=== PATIENT | female | born 1940 | race American Indian/Alaskan Native ===

== ENCOUNTER 2017-07-01 10:12 | Observation (INO) | payer OTHER ==
[2017-07-01 10:13] VITALS: BMI 28.8
--- NOTE | 2017-07-01 11:00 | ED PDOC ---
Arrival/HPI - General Chief Complaint: Weakness/Neurological Deficit Time Seen by Provider: 07/01/17 10:47 Historian: Patient - History of Present Illness Narrative History of Present Illness (Text): 07/01/17 10:49 Liliam Suresh 77 year old female accompanied by homemaker, whose past medical history includes prior CVA, Arthritis, diabetes, and hypertension, who presents to the emergency department complaining of near syncope and generalized weakness today. Patient denies any pain, fever, shortness of breath , palpitations, fall, injury, or any other complaints at this time. Time/Duration: 4-6 hours Symptom Onset: Gradual Symptom Course: Unchanged Activities at Onset: Light Context: Home Past Medical History - Provider Review Nursing Documentation Reviewed: Yes - Infectious Disease Hx of Infectious Diseases: None - Tetanus Immunization Tetanus Immunization: Unknown - Cardiac Hx Hypertension: Yes - Pulmonary Hx Respiratory Disorders: No - Neurological HX Cerebrovascular Accident: Yes - HEENT Hx HEENT Disorder: No - Renal Hx Renal Failure: Yes - Endocrine/Metabolic Hx Diabetes Mellitus Type 2: Yes - Hematological/Oncological Hx Blood Transfusions: No Hx Blood Transfusion Reaction: No - Integumentary Hx Dermatological Disorder: No - Musculoskeletal/Rheumatological Hx Musculoskeletal Disorders: Yes Hx Arthritis: Yes - Gastrointestinal Hx Gastrointestinal Disorders: No - Genitourinary/Gynecological Hx Genitourinary Disorders: No - Psychiatric Hx Emotional Abuse: No Hx Physical Abuse: No Hx Substance Use: No - Past Surgical History Past Surgical History: No Previous - Surgical History Hx Carotid Endarterectomy: Yes - Anesthesia Hx Anesthesia: Yes Hx Anesthesia Reactions: No Hx Malignant Hyperthermia: No - Suicidal Assessment Feels Threatened In Home Enviroment: No Family/Social History - Physician Review Nursing Documentation Reviewed: Yes Family/Social History: No Known Family HX Smoking Status: Never Smoked Hx Alcohol Use: No Hx Substance Use: No Hx Substance Use Treatment: No Allergies/Home Meds Allergies/Adverse Reactions: Allergies Penicillins Allergy (Verified 07/01/17 10:28) ITCHING Home Medications: Home Meds Medication Instructions Recorded Confirmed oxyCODONE/Acetaminophen [Percocet 1 tab PO Q6 04/29/15 07/01/17 5/325 mg Tab] Atorvastatin Calcium [Atorvastatin 40 mg PO DAILY 07/01/17 07/01/17 Calcium] B Complex W-C No.20/Folic Acid 1 mg PO DAILY 07/01/17 07/01/17 [Renal Caps Softgel] Colesevelam HCl [Welchol] 625 mg PO DAILY 07/01/17 07/01/17 Ezetimibe [Zetia] 10 mg PO DAILY 07/01/17 07/01/17 Febuxostat [Uloric] 40 mg PO DAILY 07/01/17 07/01/17 Furosemide [Lasix] 20 mg PO DAILY 07/01/17 07/01/17 Insulin Lispro [humALOG] 0 units SC AC 07/01/17 07/01/17 Losartan [Cozaar] 50 mg PO DAILY 07/01/17 07/01/17 Nebivolol [Bystolic] 2.5 mg PO DAILY 07/01/17 07/01/17 Review of Systems - Physician Review All systems were reviewed & negative as marked: Yes - Review of Systems Constitutional: Other (Generalized weakness). absent: Fevers, Night Sweats Eyes: absent: Vision Changes ENT: absent: Hearing Changes Respiratory: absent: SOB, Cough Cardiovascular: absent: Chest Pain Gastrointestinal: absent: Abdominal Pain Genitourinary Female: absent: Dysuria, Frequency Musculoskeletal: absent: Arthralgias Skin: absent: Rash Neurological: Other (Near Syncope) Endocrine: absent: Diaphoresis Hemo/Lymphatic: absent: Adenopathy Psychiatric: absent: Anxiety, Depression Physical Exam - Physical Exam Narrative Physical Exam (Text): Constitutional: No acute distress. Head: Normocephalic. Atraumatic. Eyes: PERRL. ENT: Moist mucous membranes. Neck: Supple. Cardiovascular: Regular rate. Chest: No tenderness. Respiratory: Clear to auscultation bilaterally. GI: Soft. Nontender. Nondistended. Back: No CVA tenderness. Musculoskeletal: No tenderness or swelling of extremities. Skin: No rash. Neurologic: Alert, facial droop. Moves all extremities. Vital Signs Reviewed: Yes Vital Signs Pulse Resp BP Pulse Ox 07/01/17 12:13 88 18 123/70 98 Medical Decision Making ED Course and Treatment: 07/01/17 11:03 Impression: 77 year old female complaining of near syncope and generalized weakness today. Plan: -- Chest X-ray -- Urine Culture and Urinalysis -- Labs -- Reassess and disposition Prior Visits: Notes and results from previous visits were reviewed. Patient was last seen in the emergency department on 03/14/16 for dizziness and generalized weakness x 2 days. Patient was discharged home. Progress Notes: EKG: Ordered, reviewed, and independently interpreted the EKG. Rate : 59 BPM Rhythm : Sinus Rhythm Interpretation : No ST-segment elevations or depressions, no T-wave inversions, normal intervals. Comparison : No previous EKG for comparison. 07/01/17 12:36 Chest X-ray: Creator : Guerrero Mota MD FINDINGS: LUNGS:No active pulmonary disease. PLEURA:No significant pleural effusion identified, no pneumothorax apparent. CARDIOVASCULAR:Normal. OSSEOUS STRUCTURES:No significant abnormalities. VISUALIZED UPPER ABDOMEN:Normal. OTHER FINDINGS:None. IMPRESSION: No active disease. 07/01/17 15:13 FINDINGS: HEMORRHAGE: No intracranial hemorrhage. BRAIN: No mass effect or edema. No atrophy or chronic microvascular ischemic changes. VENTRICLES: Unremarkable. No hydrocephalus. CALVARIUM: Unremarkable. PARANASAL SINUSES: Unremarkable as visualized. No significant inflammatory changes. MASTOID AIR CELLS: Unremarkable as visualized. No inflammatory changes. OTHER FINDINGS: None. IMPRESSION: No acute findings Dr. Powell accepts patient to his service. vice president payment notified. - Lab Interpretations Lab Results: 07/01/17 11:31 07/01/17 11:31 Lab Results 07/01/17 12:04: Urine Color Yellow, Urine Appearance Clear, Urine pH 6.0, Ur Specific [place] 1.020, Urine Protein 100 H, Urine Glucose (UA) Negative, Urine Ketones Negative, Urine Blood Trace-lysed H, Urine Nitrate Negative, Urine Bilirubin Negative, Urine Urobilinogen 0.2, Ur Leukocyte Esterase Negative, Urine RBC 2 - 5, Urine WBC 0 - 2, Ur Epithelial Cells 6 - 8, Urine Bacteria Many , Hyaline Casts 0 - 2, Fine Granular Casts 0 - 2 07/01/17 11:36: POC Glucose (mg/dL) 157 H 07/01/17 11:31: Sodium 143, Potassium 4.8, Chloride 111 H, Carbon Dioxide 19 L, Anion Gap 17, BUN 41 H, Creatinine 1.9 H, Est GFR ( Amer) 31, Est GFR ( Non-Af Amer) 26, Random Glucose 162 H, Calcium 9.2, Total Bilirubin 0.4, AST 14 , ALT 14, Alkaline Phosphatase 97, Total Creatine Kinase 93, Troponin I < 0.01, Total Protein 6.9, Albumin 3.7, Globulin 3.2, Albumin/Globulin Ratio 1.2 07/01/17 11:31: WBC 7.1 D, RBC 3.68, Hgb 11.0 L, Hct 32.7 L, MCV 88.9, MCH 29.9 , MCHC 33.6, RDW 13.5, Plt Count 224, MPV 11.6 H, Gran % 70.3 H, Lymph % (Auto) 23.0, [place] % (Auto) 6.3 H, Eos % (Auto) 0.3 L, Baso % (Auto) 0.1, Gran # 4.98, Lymph # (Auto) 1.6, [place] # (Auto) 0.5, Eos # (Auto) 0.0, Baso # (Auto) 0.01 I have reviewed the lab results: Yes - RAD Interpretation Radiology Orders: 07/01/17 10:48 CHEST PORTABLE [RAD] Stat 07/01/17 12:10 HEAD W/O CONTRAST [CT] Stat - Medication Orders Current Medication Orders: Discontinued Medications Sodium Chloride (Sodium Chloride 0.9%) 1,000 mls @ 999 mls/hr IV .Q1H1M STA Stop: 07/01/17 13:01 - Scribe Statement The provider has reviewed the documentation as recorded by the Stacey Cook Provider Scribe Attestation: All medical record entries made by the Scribe were at my direction and personally dictated by me. I have reviewed the chart and agree that the record accurately reflects my personal performance of the history, physical exam, medical decision making, and the department course for this patient. I have also personally directed, reviewed, and agree with the discharge instructions and disposition. Disposition/Present on Arrival - Present on Arrival Any Indicators Present on Arrival: No History of DVT/PE: No History of Uncontrolled Diabetes: No Urinary Catheter: No History of Decub. Ulcer: No History Surgical Site Infection Following: None - Disposition Have Diagnosis and Disposition been Completed?: Yes Diagnosis: Near syncope, Dehydration Disposition: HOSPITALIZED Disposition Time: 13:45 Patient Plan: Observation, Telemetry Condition: FAIR
[2017-07-01 11:35] LABS: BASO # 0.01 K/mm3 (0.0-2.0); BASO % 0.1 % (0.0-3.0); EOS % 0.3 % (1.5-5.0); GRAN # 4.98 (1.4-6.5); GRAN % 70.3 % (50.0-68.0); LYMPH # 1.6 (1.2-3.4); MEAN CELL VOLUME 88.9 fl (80.0-105.0); MEAN CORPUSCULAR HEMOGLOBIN 29.9 pg (25.0-35.0); MEAN CORPUSCULAR HGB CONC 33.6 g/dl (31.0-37.0); MEAN PLATELET VOLUME 11.6 fl (7.0-11.0); MONO # 0.5 (0.1-0.6); MONO % 6.3 % (1.0-6.0); RBC 3.68 10^6/uL (3.5-6.1); RED CELL DISTRIBUTION WIDTH 13.5 % (11.5-14.5); WHITE BLOOD COUNT 7.1 10^3/ul (4.5-11.0)
[2017-07-01 11:44] LABS: ALB/GLOB RATIO 1.2 (1.1-1.8); ALBUMIN 3.7 g/dL (3.0-4.8); CALCIUM 9.2 mg/dL (8.4-10.5); GFR AFRICAN-AMERICAN 31; GFR NON-AFRICAN AMERICAN 26
[2017-07-01 11:55] LABS: TROPONIN I < 0.01 ng/mL
[2017-07-01 11:56] LABS: ALT/SGPT 14 U/L (7-56); AST/SGOT 14 U/L (14-36); BLOOD UREA NITROGEN 41 mg/dL (7-21)
[2017-07-01] MEDS ORDERED: Sodium Chloride 0.9% 1,000 ML IV STA (12:01)
[2017-07-01 12:16] LABS: URINE APPEARANCE CLEAR (CLEAR); URINE BILIRUBIN NEGATIVE (NEGATIVE); URINE BLOOD TRACE-LYSED (NEGATIVE); URINE COLOR YELLOW (YELLOW); URINE GLUCOSE (UA) NEGATIVE (NEGATIVE); URINE LEUKOCYTE ESTERASE NEGATIVE Leu/uL (NEGATIVE); URINE PROTEIN 100 mg/dL (<30 mg/dL); URINE UROBILINOGEN 0.2 E.U./dL (<1 E.U./dL)
[2017-07-01 12:19] LABS: URINE BACTERIA MANY (NEG); URINE HYALINE CAST 0 - 2 /hpf; URINE WBC 0 - 2 /hpf (0-6)
[2017-07-01 12:20] LABS: URINE FINE GRANULAR CAST 0 - 2 /hpf (0-2)
--- NOTE | 2017-07-01 12:23 | RAD ---
HISTORY: near syncope COMPARISON: 03/14/2016 FINDINGS: LUNGS: No active pulmonary disease. PLEURA: No significant pleural effusion identified, no pneumothorax apparent. CARDIOVASCULAR: Normal. OSSEOUS STRUCTURES: No significant abnormalities. VISUALIZED UPPER ABDOMEN: Normal. OTHER FINDINGS: None. IMPRESSION: No active disease.
--- NOTE | 2017-07-01 13:47 | CT ---
PROCEDURE: CT HEAD WITHOUT CONTRAST. HISTORY: near syncope COMPARISON: None available. TECHNIQUE: Axial computed tomography images were obtained through the head/brain without intravenous contrast. Radiation dose: Total exam DLP = 944 mGy-cm. This CT exam was performed using one or more of the following dose reduction techniques: Automated exposure control, adjustment of the mA and/or kV according to patient size, and/or use of iterative reconstruction technique. FINDINGS: HEMORRHAGE: No intracranial hemorrhage. BRAIN: No mass effect or edema. No atrophy or chronic microvascular ischemic changes. VENTRICLES: Unremarkable. No hydrocephalus. CALVARIUM: Unremarkable. PARANASAL SINUSES: Unremarkable as visualized. No significant inflammatory changes. MASTOID AIR CELLS: Unremarkable as visualized. No inflammatory changes. OTHER FINDINGS: None. IMPRESSION: No acute findings
[2017-07-01 15:42] LABS: PARTIAL THROMBOPLASTIN TIME 24.4 Seconds (25.1-36.5); PROTHROMBIN TIME 11.4 SECONDS (9.4-12.5)
--- NOTE | 2017-07-01 16:09 | CP.PCM.HP ---
<Jorge Ambrose - Last Filed: 07/01/17 16:02> History of Present Illness - History of Present Illness History of Present Illness: Medicine H&P: Dr. Powell Chief Complaint: Near syncope HPI: 77 year old female with past medical history significant for previous stroke, HTN, IDDM, lacunar infarct and microvascular ischemic disease of the brain presents with episode of pre-syncope and generalized weakness. Patient states she has been feeling tired and fatigued throughout the day today. She denies any extremity numbness and tingling, and states that this does not feel like her prior stroke, but that she has been feeling dizzy and weak in the right side of her body. Review of Systems: 12 point ROS obtained and negative except as per HPI Surgical Hx: Cardiac catheterization, colonoscopy with tubular adenoma, polypectomy Medical Hx: As above in addition to esophageal candidaisis, gastritis, osteomyelitis, degenerative joint disease, CAD, Diiverticulosis Allergies: PCN Social History: Denies smoking, alcohol, illicits Home Meds: Reviewed, as per MAR Family Hx: HTN, DM Present on Admission - Present on Admission Any Indicators Present on Admission: No Past Patient History - Infectious Disease Hx of Infectious Diseases: None - Tetanus Immunizations Tetanus Immunization: Unknown - Past Social History Smoking Status: Never Smoked - CARDIAC Hx Hypertension: Yes - PULMONARY Hx Respiratory Disorders: No - NEUROLOGICAL HX Cerebrovascular Accident: Yes - HEENT Hx HEENT Problems: No - RENAL Hx Renal Failure: Yes - ENDOCRINE/METABOLIC Hx Diabetes Mellitus Type 2: Yes - HEMATOLOGICAL/ONCOLOGICAL Hx Blood Transfusions: No Hx Blood Transfusion Reaction: No - INTEGUMENTARY Hx Dermatological Problems: No - MUSCULOSKELETAL/RHEUMATOLOGICAL Hx Musculoskeletal Disorders: Yes Hx Arthritis: Yes - GASTROINTESTINAL Hx Gastrointestinal Disorders: No - GENITOURINARY/GYNECOLOGICAL Hx Genitourinary Disorders: No - PSYCHIATRIC Hx Emotional Abuse: No Hx Physical Abuse: No Hx Substance Use: No - SURGICAL HISTORY Hx Carotid Endarterectomy: Yes - ANESTHESIA Hx Anesthesia: Yes Hx Anesthesia Reactions: No Hx Malignant Hyperthermia: No Meds Home Medications: Home Medication List Medication Instructions Recorded Confirmed Type Clopidogrel [Plavix] 75 mg PO DAILY tab 07/06/17 Rx Docusate [Colace] 100 mg PO TID cap 07/06/17 Rx Ergocalciferol [Drisdol 50,000 1 cap PO Q7D cap 07/06/17 Rx Intl Units Cap] Ferrous Gluconate [Fergon] 324 mg PO TID tab 07/06/17 Rx Folic Acid 1 mg PO DAILY tab 07/06/17 Rx Pantoprazole [Protonix EC Tab] 40 mg PO 0600 ect 07/06/17 Rx Polyethylene Glycol 3350 [Miralax] 17 gm PO TID packet 07/06/17 Rx Vitamin B Complex/Vit C/Folic 1 tab PO 0800 tab 07/06/17 Rx [Nephro-Francisco] hydrALAZINE [Apresoline] 25 mg PO QID tab 07/06/17 Rx Allergies/Adverse Reactions: Allergies Allergy/AdvReac Type Severity Reaction Status Date / Time Penicillins Allergy ITCHING Verified 07/01/17 10:28 Physical Exam - Constitutional Appears: Non-toxic, Older Than Stated Age, Chronically Ill - Head Exam Head Exam: ATRAUMATIC, NORMAL INSPECTION, NORMOCEPHALIC - Eye Exam Eye Exam: EOMI, Normal appearance, PERRL Pupil Exam: NORMAL ACCOMODATION, PERRL - ENT Exam ENT Exam: Mucous Membranes Moist, Normal Exam - Neck Exam Neck exam: Positive for: Normal Inspection - Respiratory Exam Respiratory Exam: Clear to Auscultation Bilateral, NORMAL BREATHING PATTERN - Cardiovascular Exam Cardiovascular Exam: REGULAR RHYTHM - GI/Abdominal Exam GI & Abdominal Exam: Normal Bowel Sounds, Soft. absent: Tenderness - Extremities Exam Additional comments: Right sided weakness - Back Exam Back exam: NORMAL INSPECTION - Neurological Exam Neurological exam: Alert, CN II-XII Intact, Normal Gait, Oriented x3, Reflexes Normal - Psychiatric Exam Psychiatric exam: Normal Affect, Normal Mood - Skin Skin Exam: Dry, Intact, Normal Color, Warm Results - Vital Signs Recent Vital Signs: Last Vital Signs Temp Pulse 58 L 07/01/17 15:52 Resp 16 07/01/17 14:10 BP 182/77 H 07/01/17 15:52 Pulse Ox 98 07/01/17 14:00 - Labs Result Diagrams: 07/01/17 11:31 07/01/17 11:31 Labs: Laboratory Results - last 24 hr 07/01/17 15:29 PT 11.4 INR 1.00 APTT 24.4 L Assessment & Plan - Assessment and Plan (Free Text) Assessment: 77 year old female with pertinent medical history of prior CVA and CAD s/p Catheterization presents with generalized weakness and near-syncope. EKG revealed NSR without arrhythmia without ST changes. CT head was negative for any acute process as well as chest XR. Patient's infectious work up so far reveals no UTI. However, patient does have creatinine 1.9 suggesting HAM which could be contributing to her weakness, and with elevated BUN/Cr ratio but producing urine, suggests a prerenal azotemia. Patient was given mild fluid resuscitation in the ED ( 1L ). Patient does not have other electrolyte disturbances that could contribute to her near syncope. Plan: Pre-Syncope, most likely 2/2 Dehydration VS HAM VS CVA - MRI, MRA brain; Carotid dopplers; Blood cultures, Urine cultures, sputum cultures - NPO, swallow eval, PT/OT - Neurology Consult: Dr. Thomas - Cardiology Consult: Dr. Castro - ASA stat, Lipitor stat Acute on Chronic Kidney Injury - Mild fluid hydration given patient's past medical history - Avoid Nephrotoxic agents except for ASA History CAD - ASA, Zetia, Bystolic - Currently NPO; when diet started, make sure patient is carb consistent and heart healthy History CVA - As per first assessment History HTN - Cozaar, Furosemide, Bystolic History IDDM - RISS Medium with Accuchecks - Currently NPO; when diet started, make sure patient is carb consistent and heart healthy History Gastritis - Monitor History DJD - Perc q6 MIRANDA History Anemia - Folic Acid, monitor History Gout - Febuxostat Uloric Prophylaxis - Lovenox, Protonix <Sherry,Gurpreet U - Last Filed: 07/09/17 11:45> Results - Vital Signs Recent Vital Signs: Last Vital Signs Temp 98.6 F 07/06/17 06:00 Pulse 78 07/06/17 09:33 Resp 20 07/06/17 06:00 BP 140/60 07/06/17 09:33 Pulse Ox 98 07/06/17 06:00 - Labs Result Diagrams: 07/05/17 06:30 07/06/17 06:15 Labs: Laboratory Results - last 24 hr 07/03/17 07/05/17 07/05/17 11:30 06:30 09:15 Sodium Potassium Chloride Carbon Dioxide Anion Gap BUN Creatinine Est GFR ( Amer) Est GFR (Non-Af Amer) POC Glucose (mg/dL) Random Glucose Calcium Phosphorus Magnesium Transferrin Erythropoietin 7.2 Ferritin 42.9 Total Bilirubin Direct Bilirubin AST ALT Alkaline Phosphatase Total Protein Albumin Globulin Albumin/Globulin Ratio PTH Intact Whole Molec 115 H 07/05/17 07/05/17 07/05/17 09:15 12:50 16:15 Sodium Potassium Chloride Carbon Dioxide Anion Gap BUN Creatinine Est GFR ( Amer) Est GFR (Non-Af Amer) POC Glucose (mg/dL) 271 H 226 H Random Glucose Calcium Phosphorus Magnesium Transferrin 153.49 L Erythropoietin Ferritin Total Bilirubin Direct Bilirubin AST ALT Alkaline Phosphatase Total Protein Albumin Globulin Albumin/Globulin Ratio PTH Intact Whole Molec 07/05/17 07/06/17 07/06/17 21:46 06:15 07:21 Sodium 139 Potassium 4.4 Chloride 106 Carbon Dioxide 23 Anion Gap 14 BUN 35 H Creatinine 1.8 H Est GFR ( Amer) 33 Est GFR (Non-Af Amer) 27 POC Glucose (mg/dL) 165 H 135 H Random Glucose 135 H Calcium 8.5 Phosphorus 3.3 Magnesium 1.9 Transferrin Erythropoietin Ferritin Total Bilirubin 0.2 Direct Bilirubin 0.0 AST 42 H D ALT 28 Alkaline Phosphatase 97 Total Protein 6.4 Albumin 3.2 Globulin 3.2 Albumin/Globulin Ratio 1.0 L PTH Intact Whole Molec 07/06/17 11:05 Sodium Potassium Chloride Carbon Dioxide Anion Gap BUN Creatinine Est GFR ( Amer) Est GFR (Non-Af Amer) POC Glucose (mg/dL) 200 H Random Glucose Calcium Phosphorus Magnesium Transferrin Erythropoietin Ferritin Total Bilirubin Direct Bilirubin AST ALT Alkaline Phosphatase Total Protein Albumin Globulin Albumin/Globulin Ratio PTH Intact Whole Molec Assessment & Plan - Assessment and Plan (Free Text) Assessment: IMPRESSION AND PLAN: 1. Near-syncope. 2. Transient uncontrolled hypertension versus hypertensive urgency (resolved). 3. Fatigue and weakness. 4. Dizziness. 5. Gait dysfunction. 6. Near syncope, etiology undetermined. 7. Sinus bradycardia. 8. Age-indeterminate anterior infarct. 9. Sinus bradycardia. 10. Mild normocytic anemia with granulocytosis. 11. Chronic kidney disease stage IV. 12. Insulin-requiring diabetes mellitus with hyperglycemia. 13. Proteinuria, microscopic hematuria, bacteriuria. 14. Sinus bradycardia with age indeterminate anterior infarct. 15. History of left carotid stenosis and left cerebral hemispheric stroke with mild residual right-sided weakness. 16. Insulin-requiring diabetes mellitus. 17. Bilateral 20-39% proximal internal carotid artery stenosis. 18. History of pulmonary hypertension with a right ventricular systolic pressure of 44 mmHg. 19. Grade 1 abnormal relaxation pattern. 20. Moderately thickened aortic valve. 21. Deconditioning. 22. Chronic pain syndrome. 23. Hyperuricemia. DICTATED AND ELECTRONICALLY SIGNED NOT READ. GURPREET POWELL MD Attending/Attestation - Attestation I have personally seen and examined this patient.: Yes I have fully participated in the care of the patient.: Yes I have reviewed all pertinent clinical information: Yes
[2017-07-01] MEDS: Insulin Reg-MEDIUM-Coverage SC SCH ×2 (17:52→22:26)
[2017-07-01] MEDS: Enoxaparin 40 mg Syringe SC SCH (18:05)
[2017-07-01] MEDS: Oxycodone/Acetaminophen 5/325 mg Tab PO SCH (18:06)
--- NOTE | 2017-07-01 19:02 | CON ---
DATE: 07/01/2017 NEUROLOGY CONSULT CHIEF COMPLAINT: Near syncope. HISTORY OF PRESENT ILLNESS: This is a 77-year-old woman with past medical history of coronary artery disease, status post cardiac catheterization, history of TIA, hypertension, insulin-dependent diabetes mellitus, lacunar infarct, microvascular chronic ischemic changes on her last MRI brain in 2017, who presented with generalized weakness and lightheadedness and felt like she was going to pass out. She felt fatigue throughout the day, found to have elevated BUN and creatinine, acute on chronic kidney injury, and felt dizzy and lightheadedness. No spinning sensation of the room. CAT scan of the head showed no acute intracranial abnormality. Currently, carotid ultrasound has been done, but result is pending. No dysmetria or focal weakness noted. PAST MEDICAL HISTORY: As above. PAST SURGICAL HISTORY: Cardiac catheterization, colonoscopy for tubular adenoma, polypectomy. REVIEW OF SYSTEMS: A 14-point review of systems negative except as per the HPI. ALLERGIES: PENICILLIN. SOCIAL HISTORY: No illicit drug use, smoking, or EtOH abuse. FAMILY HISTORY: . PHYSICAL EXAMINATION: VITAL SIGNS: Temperature 98, pulse rate is 60, blood pressure 142/72, respiratory rate of 18, oxygen saturation 98% by room air. GENERAL: The patient is sitting up in bed, in no acute distress. HEENT: Head is atraumatic and normocephalic. PERRLA. Extraocular muscles intact. NECK: Supple. No JVD. No adenopathy noted. LUNGS: Clear to auscultation. No adventitious sounds. HEART: S1 and S2, normal rate and rhythm. No murmur, rubs, or gallops. ABDOMEN: Soft, nontender, and nondistended. Bowel sounds present. EXTREMITIES: No clubbing. No cyanosis. Peripheral pulses 2+ felt bilaterally. NEUROLOGIC: The patient is alert and oriented to person, place, month, and year. Speech is fluent without any errors. Poor attention span. Slow thought process. Cranial nerves II through XII intact. Motor: Slightly reduced right-sided finger tapping when compared to the left, otherwise no major pronator drift seen. Moves all extremities spontaneously. Sensory: Decreased light touch and pinprick up to the calves bilaterally. Decreased vibration of the toes. DTRs are 2+ throughout and 1 at both knees and ankles. Coordination: [id number] intact. No dysmetria noted. LABORATORY DATA: Sodium is 143, potassium 4.8, chloride 111, carbon dioxide 19. BUN of 41, creatinine 1.9. Random glucose of 162. ASSESSMENT AND PLAN: This is a 77-year-old woman with history of coronary artery disease, status post cardiac catheterization, history of hypertension, insulin-dependent diabetes mellitus, history of lacunar infarct, chronic ischemic changes per recent MRI in 2017, history of transient ischemic attack who presented with pre-syncope and generalized weakness. CAT scan of the head showed no acute intracranial abnormalities. She was found to have elevated BUN and creatinine suggestive of possible acute on chronic kidney injury and . She underwent a carotid Doppler as well as an MRI and MRA of brain have been ordered to rule out any acute infarction. She did have slight hypertensive urgency which can correspond to generalized weakness as well. Therefore, keep blood pressures between 130s to 140 systolic and diastolic 70 to 80s. Continue with Lipitor 40 mg and recommended aspirin 81 for stroke prevention and continue with current present medical management. PT/OT evaluation. Thank you for this consult. Baltazar Thomas MD
--- NOTE | 2017-07-01 19:26 | US ---
PROCEDURE: Bilateral carotid artery duplex ultrasound HISTORY: Carotid stenosis syncope PHYSICIAN(S): Jesus Adame MD. TECHNIQUE: Duplex sonography and color-flow Doppler were used to evaluate the carotid bifurcations and limited segments of the vertebral arteries bilaterally. FINDINGS: There is mild smooth heterogeneous plaque noted at the carotid bifurcations bilaterally. The proximal right ICA is not well seen. The peak systolic velocity in the visualized portion of the proximal right internal carotid artery is 74 cm/sec. This corresponds to a 20 to 39% proximal right ICA stenosis. Normal systolic velocities are noted in the proximal right external carotid artery. There is antegrade flow in the right vertebral artery. The peak systolic velocity in the proximal left internal carotid artery is 104 cm/sec. This corresponds to a 20 to 39% proximal left ICA stenosis. Normal systolic velocities are noted in the proximal left external carotid artery. There is antegrade flow in the small left vertebral artery. IMPRESSION: 1. Bilateral 20-39% proximal ICA stenoses. The proximal right ICA is not well seen 2. Antegrade flow in both vertebral arteries.
[2017-07-01 19:32] LABS: TROPONIN I < 0.01 ng/mL
[2017-07-02 00:52] LABS: TROPONIN I < 0.01 ng/mL
[2017-07-02] MEDS: Oxycodone/Acetaminophen 5/325 mg Tab PO SCH ×5 (03:19→23:08)
[2017-07-02] MEDS: Pantoprazole 40 mg EC Tab PO SCH (05:46)
[2017-07-02] MEDS: Insulin Reg-MEDIUM-Coverage SC SCH ×4 (07:40→21:24)
[2017-07-02] MEDS: Enoxaparin 40 mg Syringe SC SCH (09:44)
[2017-07-02] MEDS: Aspirin 325 mg EC Tablets PO SCH (09:45)
--- NOTE | 2017-07-02 10:10 | PN ---
DATE: 07/02/2017 SUBJECTIVE: The patient is seen in room 277, bed 1. The patient is lying in the bed. The patient is comfortable. Thirteen systems review was done. The patient is complaining of weakness and fatigue. The patient feels that she is lack of energy. REVIEW OF SYSTEMS: Thirteen systems review was done, pertinent positive and negative dictated above. PHYSICAL EXAMINATION: VITAL SIGNS: T-max 98.3; heart rate 54, 52, 51, 58, 60, 74. Telemetry monitoring shows sinus rhythm, sinus bradycardia. Blood pressure is 153/68, 145/89, 142/72, 182/77, 123/70; respirations 20; O2 sat 100%. HEENT: Head examination normocephalic, atraumatic. HEENT examination shows positive facial asymmetry. Positive left carotid endarterectomy. Questionable soft carotid bruit. CHEST: Kyphosis. LUNGS: Shows no rales, crackles or wheezing. CARDIOVASCULAR: S1, S2. Regular rhythm. Positive systolic murmur, left sternal border, right second intercostal space, left second intercostal space. ABDOMEN: Soft. Positive bowel sound. GENITALIA: Female. RECTAL: Deferred. EXTREMITY: Shows no pitting edema, no calf tenderness, no Homans' sign. NEUROLOGICAL: The patient is alert, awake, oriented x3. The patient has some dysarthria noted, which is chronic. Positive weakness of the right upper and lower extremity noted, which is 4+ to 5-/5 on the right side. Gait examination is not tested. Cranial nerves II-XII intact and limited. MUSCULOSKELETAL: Shows a body mass index of 30. VASCULAR: Palpable pulses. PSYCHIATRIC: Not applicable. DIAGNOSTICS: From 07/02/2017 are still pending, though ordered by the medical aide, results are still pending. 07/01/2017 noted. Troponin three sets are negative. CPK is negative. EKG, chest x-ray, CAT scan of the head, carotid ultrasound all reviewed and explained to the patient. The patient is seen by Neurology. Their recommendations were noted. IMPRESSION AND PLAN: 1. Near-syncope. 2. Transient uncontrolled hypertension versus hypertensive urgency (resolved). 3. Fatigue and weakness. 4. Dizziness. 5. Gait dysfunction. 6. Near syncope, etiology undetermined. 7. Sinus bradycardia. 8. Age-indeterminate anterior infarct. 9. Sinus bradycardia. 10. Mild normocytic anemia with granulocytosis. 11. Chronic kidney disease stage IV. 12. Insulin-requiring diabetes mellitus with hyperglycemia. 13. Proteinuria, microscopic hematuria, bacteriuria. 14. Sinus bradycardia with age indeterminate anterior infarct. 15. History of left carotid stenosis and left cerebral hemispheric stroke with mild residual right-sided weakness. 16. Insulin-requiring diabetes mellitus. 17. Bilateral 20-39% proximal internal carotid artery stenosis. 18. History of pulmonary hypertension with a right ventricular systolic pressure of 44 mmHg. 19. Grade 1 abnormal relaxation pattern. 20. Moderately thickened aortic valve. 21. Deconditioning. 22. Chronic pain syndrome. 23. Hyperuricemia. Plan at this time, the patient is awaiting today's lab work, which has been ordered, B12, folate, uric acid, CMP, LFTs, lipid panel, magnesium, phosphorus, thyroid panel have been ordered. Labs are still pending. Blood and urine cultures were done by the ER, results are pending. CURRENT CONSULTATION: 1. Cardiology. 2. Neurology. 3. The patient's referral to TCU ordered. RPR ordered. CURRENT MEDICATIONS: The patient is started on hydralazine 10 mg p.o. every 6 hours, aspirin 325 daily. The patient's uric acid will be checked. Insulin medium-dose sliding scale coverage before meals and at bedtime, Lipitor 40 mg daily, Lovenox 40 mg subcu daily, Percocet 5/325 one tab every 6 p.r.n., Protonix 40 daily, Zetia 10 mg daily. MRI, MRA of the brain is pending. Repeat EKG from today is pending. Echo with Doppler is pending. EEG is pending. The patient is on heart-healthy diet. Neuro checks. Out of bed, physical therapy, ambulation therapy, BELLE stockings, SCDs, occupational therapy ordered. At present, the patient's pending diagnostic information is pending. The patient's further management will be dependent upon the patient's clinical condition, hemodynamic status and as per the patient's response to therapeutic intervention, as per the patient's diagnostic test results and as per recommendation by all the physicians involved in the care of the patient. Dictated and electronically signed, not read. Randall Powell MD [facility] # [id number]
[2017-07-02 11:44] LABS: BASO # 0.01 K/mm3 (0.0-2.0); BASO % 0.2 % (0.0-3.0); EOS % 0.5 % (1.5-5.0); GRAN # 4.18 (1.4-6.5); GRAN % 65.6 % (50.0-68.0); HEMOGLOBIN 11.6 g/dL (12.0-16.0); LYMPH # 1.8 (1.2-3.4); LYMPH % 28.7 % (22.0-35.0); MEAN CELL VOLUME 88.9 fl (80.0-105.0); MEAN CORPUSCULAR HEMOGLOBIN 29.8 pg (25.0-35.0); MEAN CORPUSCULAR HGB CONC 33.5 g/dl (31.0-37.0); MONO # 0.3 (0.1-0.6); RBC 3.89 10^6/uL (3.5-6.1); RED CELL DISTRIBUTION WIDTH 13.6 % (11.5-14.5); WHITE BLOOD COUNT 6.4 10^3/ul (4.5-11.0)
[2017-07-02 11:56] LABS: ALB/GLOB RATIO 1.1 (1.1-1.8); ALBUMIN 3.8 g/dL (3.0-4.8); ALT/SGPT 12 U/L (7-56); AST/SGOT 13 U/L (14-36); BLOOD UREA NITROGEN 37 mg/dL (7-21); CALCIUM 9.1 mg/dL (8.4-10.5); GFR AFRICAN-AMERICAN 29; GFR NON-AFRICAN AMERICAN 24; HDL CHOLESTEROL 52 mg/dL (29-60); URIC ACID 8.9 mg/dL (2.5-6.2)
[2017-07-02 12:07] LABS: LDL CHOLESTEROL 55 mg/dL (0-129)
[2017-07-02 12:08] LABS: TROPONIN I < 0.01 ng/mL
[2017-07-02 12:12] LABS: FREE T4 0.94 ng/dL (0.78-2.19); T4 6.5 ug/dL (5.5-11.0)
--- NOTE | 2017-07-02 12:29 | CARD ---
APPROVED REPORT EKG Measurement Heart [id number] [place] [id number] <Conclusion> Marked sinus bradycardia Non Specific ST_T Changes.
--- NOTE | 2017-07-02 13:04 | CARD ---
APPROVED REPORT EKG Measurement Heart [id number] <Conclusion> Sinus bradycardia Non Specific ST_T Changes.
--- NOTE | 2017-07-02 22:16 | CON ---
DATE: 07/02/2017 LOCATION: The patient in room 277, bed 1. REASON FOR CONSULTATION: Dizziness, near syncope, hypertension, diabetes. HISTORY OF PRESENT ILLNESS: A 77-year-old female, who has history of hypertension, [id number] diabetes mellitus, lacunar infarct, microvascular chronic ischemic changes on her last MRI of brain in 2016, who has history of carotid surgery. Admitted with 1-day duration of episodes of dizziness on standing up and walking, not on sitting and not on lying down. She feels like she is going to fall down. She has to hold on the things. The patient denies any chest pain, shortness of breath, palpitation associated with these episodes. PAST MEDICAL HISTORY: Positive for diabetes, hypertension, CVA with facial paresis, carotid surgery. The patient has cardiac catheterization in 2012. It was nonobstructive coronary artery disease. She had polypectomy in the past. PERSONAL HISTORY: Denies smoking. Denies drinking. No history of any drug abuse. ALLERGIES: THE PATIENT STATES THAT SHE IS ALLERGIC TO PENICILLIN. FAMILY HISTORY: Positive for hypertension. REVIEW OF SYSTEMS: All the systems reviewed. Positives mentioned in the history, others were negative. LIST OF HOME MEDICATIONS: The patient was taking losartan 50 mg daily, Lasix 20 mg daily, atorvastatin 40 mg daily, Zetia 10 mg daily, Bystolic 2.5 mg p.o. daily. PHYSICAL EXAMINATION: VITAL SIGNS: Blood pressure 143/56; respirations 19; pulse is 64, but at times has also bradycardia, rate around 48 per minute; temperature 98.1. HEENT: Head is normocephalic. Eyes: Pupils normal. Conjunctivae normal. Nose and throat normal. Facial: The patient has weakness on left side of the face. LUNGS: Clear. CARDIOVASCULAR: S1 and S2. ABDOMEN: Soft. No tenderness. No organomegaly. Bowel sound normal. EXTREMITIES: No clubbing. No cyanosis. LABORATORY DATA: WBC 6.4, hemoglobin 11.6, hematocrit 34.6, platelet 247. Sodium 145, potassium 4.1, BUN 37, creatinine 2, glucose random 220. Troponin x2 negative. T4, TSH are normal. Cholesterol 148 with LDL of 55. EKG shows sinus bradycardia, nonspecific ST-T changes, sinus bradycardia rate about 48 per minute. Chest x-ray was clear. CT scan of the head showed no acute finding. DIAGNOSES: Dizziness on standing up and walking and near syncope, diabetes, hypertension, arthritis, renal dysfunction, history of old cerebrovascular accident, history of carotid surgery, history of transient ischemic attack in the past, cardiac catheterization in year 2012 with nonobstructive coronary artery disease. PLAN: The patient had an echo on 05/02/2015, which showed RVSP 44 mmHg, which is suggestive of mild pulmonary hypertension, grade 1 abnormal relaxation LV pattern. LV ejection fraction was normal 71%. The patient also has stress test on 05/02/2015, which was negative. Normal ejection fraction of 65%. The patient's Bystolic had been put on hold and we are going to check orthostatic blood pressure to rule out orthostatic hypotension. Also, we will put 24-hour monitor to monitor for arrhythmia, especially bradycardia. The patient is now on hydralazine 10 mg p.o. every 6 hours, aspirin 325 mg daily, Uloric 40 mg p.o. daily, Lipitor 40 daily, Lovenox 40 mg subcu daily, Protonix 40 daily, Zetia 10 mg daily. We will continue present therapy and we will monitor for arrhythmia and we will follow with you. This consult has been done on behalf of Dr. Castro whom I am in coverage. Daniela Rosario MD
[2017-07-03] MEDS: Pantoprazole 40 mg EC Tab PO SCH (05:11)
[2017-07-03] MEDS: Oxycodone/Acetaminophen 5/325 mg Tab PO SCH ×3 (05:11→17:24)
[2017-07-03 06:37] LABS: BASO # 0.01 K/mm3 (0.0-2.0); BASO % 0.2 % (0.0-3.0); EOS # 0.1 (0.0-0.7); EOS % 1.2 % (1.5-5.0); GRAN # 2.81 (1.4-6.5); GRAN % 49.8 % (50.0-68.0); HEMOGLOBIN 9.9 g/dL (12.0-16.0); LYMPH # 2.4 (1.2-3.4); LYMPH % 42.6 % (22.0-35.0); MEAN CELL VOLUME 88.6 fl (80.0-105.0); MEAN CORPUSCULAR HEMOGLOBIN 29.6 pg (25.0-35.0); MEAN CORPUSCULAR HGB CONC 33.4 g/dl (31.0-37.0); MEAN PLATELET VOLUME 10.8 fl (7.0-11.0); MONO # 0.4 (0.1-0.6); MONO % 6.2 % (1.0-6.0); RBC 3.34 10^6/uL (3.5-6.1); RED CELL DISTRIBUTION WIDTH 13.4 % (11.5-14.5); WHITE BLOOD COUNT 5.6 10^3/ul (4.5-11.0)
[2017-07-03 07:17] LABS: ALBUMIN 3.1 g/dL (3.0-4.8); BILIRUBIN,DIRECT 0.1 mg/dL (0.0-0.4); CALCIUM 8.5 mg/dL (8.4-10.5)
[2017-07-03] MEDS: Insulin Reg-MEDIUM-Coverage SC SCH ×4 (07:49→21:14)
--- NOTE | 2017-07-03 08:42 | CP.PCM.PN ---
Subjective - Date & Time of Evaluation Date of Evaluation: 07/03/17 Time of Evaluation: 08:00 - Subjective Subjective: (covering for Dr. Powell) Patient is seen this morning. She is lying in bed, awake. She says that she becomes dizzy when standing. Objective - Vital Signs/Intake and Output Vital Signs (last 24 hours): Temp Pulse Resp BP Pulse Ox 98.6 F 55 L 20 163/62 H 98 07/03/17 06:00 07/03/17 06:00 07/03/17 06:00 07/03/17 06:00 07/03/17 06:00 - Medications Medications: Current Medications Aspirin (Ecotrin) 325 mg PO DAILY [facility] Last Admin: 07/02/17 09:45 Dose: 325 mg Atorvastatin Calcium (Lipitor) 40 mg PO DAILY [facility] Last Admin: 07/02/17 09:45 Dose: 40 mg Ezetimibe (Zetia) 10 mg PO DAILY [facility] Last Admin: 07/02/17 09:45 Dose: 10 mg Enoxaparin Sodium (Lovenox) 40 mg SC DAILY [facility] PRN Reason: Protocol Last Admin: 07/02/17 09:44 Dose: 40 mg Hydralazine HCl (Apresoline) 10 mg PO Q6H [facility] Last Admin: 07/03/17 05:11 Dose: 10 mg Insulin Human Regular (Humulin R Med) 0 units SC ACHS [facility] PRN Reason: Protocol Last Admin: 07/03/17 07:49 Dose: Not Given Non-Formulary Medication (Febuxostat [Uloric]) 40 mg PO DAILY [facility] Oxycodone/Acetaminophen (Percocet 5/325 Mg Tab) 1 tab PO Q6 [facility] Stop: 07/04/17 18:01 Last Admin: 07/03/17 05:11 Dose: 1 tab Pantoprazole Sodium (Protonix Ec Tab) 40 mg PO 0600 [facility] Last Admin: 07/03/17 05:11 Dose: 40 mg - Labs Labs: 07/03/17 05:00 07/03/17 06:00 PT 11.4 SECONDS (9.4-12.5) 07/01/17 15:29 INR 1.00 (0.93-1.08) 07/01/17 15:29 APTT 24.4 Seconds (25.1-36.5) L 07/01/17 15:29 - Constitutional Appears: No Acute Distress - Head Exam Head Exam: ATRAUMATIC, NORMOCEPHALIC - Respiratory Exam Respiratory Exam: Decreased Breath Sounds, NORMAL BREATHING PATTERN - Cardiovascular Exam Cardiovascular Exam: +S1, +S2 - GI/Abdominal Exam GI & Abdominal Exam: Soft, Normal Bowel Sounds. absent: Tenderness - Neurological Exam Neurological Exam: Alert, Awake Assessment and Plan - Assessment and Plan (Free Text) Assessment: Near Syncope Dizziness DM HTN Arthritis Plan: Patient is seen this morning. She has ongoing evaluation by cardiology and neurology. MRI/MRA Brain and EEG are still pending. Holter monitor is also being done on the patient. Echocardiogram has been done but not read. Carotid artery doppler shows 20-39% stenosis bilaterally. Patient to continue PT and await further testing. Dr. Powell will see the patient tomorrow.
--- NOTE | 2017-07-03 09:13 | CP.PCM.PN ---
Subjective - Date & Time of Evaluation Date of Evaluation: 07/03/17 Time of Evaluation: 06:50 - Subjective Subjective: Lying in bed,awake, no distress,denies chest pain or shortness of breath Reason for consultation and follow up: Cardiac evaluation, near syncope, stroke , hypertension, non insulin diabetes mellitus Seen and examined by me and Dr. Rosario (covering Dr. Castro) Objective - Vital Signs/Intake and Output Vital Signs (last 24 hours): Temp Pulse Resp BP Pulse Ox 98.6 F 55 L 20 163/62 H 98 07/03/17 06:00 07/03/17 06:00 07/03/17 06:00 07/03/17 06:00 07/03/17 06:00 - Medications Medications: Current Medications Aspirin (Ecotrin) 325 mg PO DAILY [facility] Last Admin: 07/02/17 09:45 Dose: 325 mg Atorvastatin Calcium (Lipitor) 40 mg PO DAILY [facility] Last Admin: 07/02/17 09:45 Dose: 40 mg Ezetimibe (Zetia) 10 mg PO DAILY [facility] Last Admin: 07/02/17 09:45 Dose: 10 mg Enoxaparin Sodium (Lovenox) 40 mg SC DAILY [facility] PRN Reason: Protocol Last Admin: 07/02/17 09:44 Dose: 40 mg Hydralazine HCl (Apresoline) 10 mg PO Q6H [facility] Last Admin: 07/03/17 05:11 Dose: 10 mg Insulin Human Regular (Humulin R Med) 0 units SC ACHS [facility] PRN Reason: Protocol Last Admin: 07/03/17 07:49 Dose: Not Given Non-Formulary Medication (Febuxostat [Uloric]) 40 mg PO DAILY [facility] Oxycodone/Acetaminophen (Percocet 5/325 Mg Tab) 1 tab PO Q6 [facility] Stop: 07/04/17 18:01 Last Admin: 07/03/17 05:11 Dose: 1 tab Pantoprazole Sodium (Protonix Ec Tab) 40 mg PO 0600 [facility] Last Admin: 07/03/17 05:11 Dose: 40 mg - Labs Labs: PT 11.4 SECONDS (9.4-12.5) 07/01/17 15:29 INR 1.00 (0.93-1.08) 07/01/17 15:29 APTT 24.4 Seconds (25.1-36.5) L 07/01/17 15:29 - Constitutional Appears: No Acute Distress - Eye Exam Eye Exam: Normal appearance - ENT Exam ENT Exam: Mucous Membranes Moist - Respiratory Exam Respiratory Exam: Clear to Ausculation Bilateral, NORMAL BREATHING PATTERN - Cardiovascular Exam Cardiovascular Exam: +S1, +S2 Additional comments: telemetry sinus bradycardia 50's - GI/Abdominal Exam GI & Abdominal Exam: Soft, Normal Bowel Sounds - Exam Additional comments: incontinent, purewick external cath intact - Extremities Exam Extremities Exam: Normal Capillary Refill - Neurological Exam Neurological Exam: Alert, Awake, Oriented x3 - Psychiatric Exam Psychiatric exam: Normal Affect, Normal Mood - Skin Skin Exam: Intact, Normal Color, Warm Assessment and Plan - Assessment and Plan (Free Text) Assessment: 77 year old female who came in to the ER due to near syncope and generalized weakness. She has been feeling tired and weak throughout the day.claimed to be dizziy on standing up and walking. History significant for previous stroke, HTN , IDDM, lacunar infarct and microvascular ischemic disease of the brain.post carotid surgery. Plan: Orthosthatic hypotension Will order orthostatic BP taking Bystolic home med held off, started on Hydralazine Bradycardia, on Holter monitor for 24 hours With Neuro consult On ASA 325 mg daily,Lipitor 40 mg daily,Zetia 10 mg daily, Hydralazine 10 mg every 6 hours,Uloric 40 mg daily SBP elevated, will increase Hydralazine Continue current treatment Continue current medications Will follow up Plan and treatment discussed with Dr. Rosario
--- NOTE | 2017-07-03 09:26 | CARD ---
APPROVED REPORT EXAM: Two-dimensional and M-mode echocardiogram with Doppler and color Doppler. 2D DIMENSIONS IVSd1.0 (0.7-1.1cm)LVDd4.3 (3.9-5.9cm) PWd1.1 (0.7-1.1cm)LVDs2.8 (2.5-4.0cm) FS (%) 34.9 %LVEF (%)64.5 (>50%) M-Mode DIMENSIONS Left Atrium (MM)3.90 (2.5-4.0cm)Aortic Root2.90 (2.2-3.7cm) Aortic Cusp Exc.1.80 (1.5-2.0cm) Aortic Valve AoV Peak Cfgsiuzg721.0cm/Christine Peak GR.14mmHg Mitral Valve MV E Vvgpzahj17.9cm/sMV A Ptidrnpi884.0cm/sE/A ratio0.9 TDI Lateral E' Peak V8.09cm/sMedial E' Peak V6.73cm/sE/Lateral E'10.9 E/Medial E'13.1 Tricuspid Valve TR Peak Ywpuwkyr889yu/sRAP [id number] Peak Gr.19mmHg [id number] LEFT VENTRICLE The left ventricle is normal size. There is normal left ventricular wall thickness. The left ventricular function is normal.EF-60-65% There is normal LV segmental wall motion. Transmitral Doppler flow pattern is Grade III-reversible restrictive diastolic dysfunction. No left ventricle thrombus noted on this study. There is no ventricular septal defect visualized. There is no left ventricular aneurysm. There is no mass noted in the left ventricle. RIGHT VENTRICLE The right ventricle is normal size. There is normal right ventricular wall thickness. The right ventricular systolic function is normal. ATRIA The left atrium size is normal. The right atrium size is normal. The interatrial septum is intact with no evidence for an atrial septal defect. AORTIC VALVE The aortic valve is mildly to moderately thickened. The aortic valve is mildly to moderately sclerotic. There is trace aortic regurgitation. There is trace valvular aortic stenosis Vs Aortic Sclerosis MITRAL VALVE The mitral valve is thickened but opens well. Mitral regurgitation is trace. There is no mitral valve stenosis. There is no evidence of mitral valve prolapse. TRICUSPID VALVE The tricuspid valve leaflets are thickened , but open well. There is trace tricuspid regurgitation.,RVSP-29 mmof Hg There is no tricuspid valve stenosis. There is no tricuspid valve prolapse or vegetation. PULMONIC VALVE The pulmonary valve is normal in structure. There is trace pulmonic valvular regurgitation. There is no pulmonic valvular stenosis. GREAT VESSELS The aortic root is normal in size. The ascending aorta is normal in size. The pulmonary artery is normal. The IVC is normal in size and collapses >50% with inspiration. PERICARDIAL EFFUSION There is no pleural effusion. There is no pericardial effusion. <Conclusion> Normal chamber Size. EF-60-65% There is trace MR/TR/AR/PI RVSP_29 mmof Hg.. There is no pericardial effusion. The IVC is normal in size and collapses >50% with inspiration. No vegetation or thrombus noted.
[2017-07-03] MEDS: Enoxaparin 40 mg Syringe SC SCH (09:57)
[2017-07-03] MEDS: Aspirin 325 mg EC Tablets PO SCH (09:58)
[2017-07-03] MEDS: POLYETHYLENE GLYCOL 3350 17 GM/Dose PACKET PO SCH ×2 (13:50→17:24)
--- NOTE | 2017-07-03 14:19 | CP.PCM.CON ---
History of Present Illness - History of Present Illness History of Present Illness: renal consult note HPI: 77 year old female with stroke, HTN, IDDM, lacunar infarct is admitted with an episode of pre-syncope and generalized weakness. Patient states she has been feeling tired and fatigued throughout the day today. she was just recently in our office by Dr Jennifer Garcia fe days ago and her lab work reviewed showed ckd stage 3 sec to dm and htn Review of Systems: complete ROS obtained and negative except as per HPI Surgical Hx: Cardiac catheterization, colonoscopy with tubular adenoma, polypectomy Social History: Denies smoking, alcohol, illicits Family Hx: HTN, DM exam: vss heent normal o pmoist skin normal [id number] no resp distress abd soft no edema psy cooperative ao times 3 a&P: CKD stage 3/htn/dm/syncope cr is close to baseline i have ordered ckd labs which she was supposed to do as opt check renal USG bp continue current meds dm per primary care thank you for the consult will continue to follow d/w Dr Powell Past Patient History - Infectious Disease Hx of Infectious Diseases: None - Tetanus Immunizations Tetanus Immunization: Unknown - Past Social History Smoking Status: Never Smoked - CARDIAC Hx Cardiac Disorders: Yes (CAD, s/p cardiac cath) Hx Hypertension: Yes - PULMONARY Hx Respiratory Disorders: No - NEUROLOGICAL HX Cerebrovascular Accident: Yes (2 years ago) - HEENT Hx HEENT Problems: No - RENAL Hx Renal Failure: Yes - ENDOCRINE/METABOLIC Hx Diabetes Mellitus Type 2: Yes - HEMATOLOGICAL/ONCOLOGICAL Hx Blood Transfusions: No Hx Blood Transfusion Reaction: No - INTEGUMENTARY Hx Dermatological Problems: No - MUSCULOSKELETAL/RHEUMATOLOGICAL Hx Musculoskeletal Disorders: Yes Hx Arthritis: Yes - GASTROINTESTINAL Hx Gastrointestinal Disorders: No - GENITOURINARY/GYNECOLOGICAL Hx Genitourinary Disorders: No - PSYCHIATRIC Hx Emotional Abuse: No Hx Physical Abuse: No Hx Substance Use: No - SURGICAL HISTORY Hx Carotid Endarterectomy: Yes - ANESTHESIA Hx Anesthesia: Yes Hx Anesthesia Reactions: No Hx Malignant Hyperthermia: No Meds Allergies/Adverse Reactions: Allergies Allergy/AdvReac Type Severity Reaction Status Date / Time Penicillins Allergy ITCHING Verified 07/01/17 10:28 - Medications Medications: Current Medications Aspirin (Ecotrin) 325 mg PO DAILY [facility] Last Admin: 07/03/17 09:58 Dose: 325 mg Atorvastatin Calcium (Lipitor) 40 mg PO DAILY [facility] Last Admin: 07/03/17 09:58 Dose: 40 mg Ezetimibe (Zetia) 10 mg PO DAILY [facility] Last Admin: 07/03/17 09:58 Dose: 10 mg Enoxaparin Sodium (Lovenox) 40 mg SC DAILY [facility] PRN Reason: Protocol Last Admin: 07/03/17 09:57 Dose: 40 mg Hydralazine HCl (Apresoline) 25 mg PO QID [facility] Last Admin: 07/03/17 13:50 Dose: 25 mg Insulin Human Regular (Humulin R Med) 0 units SC ACHS [facility] PRN Reason: Protocol Last Admin: 07/03/17 11:50 Dose: 1 units Non-Formulary Medication (Febuxostat [Uloric]) 40 mg PO DAILY [facility] Oxycodone/Acetaminophen (Percocet 5/325 Mg Tab) 1 tab PO Q6 [facility] Stop: 07/04/17 18:01 Last Admin: 07/03/17 11:51 Dose: 1 tab Pantoprazole Sodium (Protonix Ec Tab) 40 mg PO 0600 [facility] Last Admin: 07/03/17 05:11 Dose: 40 mg Polyethylene Glycol (Miralax) 17 gm PO TID [facility] Last Admin: 07/03/17 13:50 Dose: 17 gm Results - Vital Signs Recent Vital Signs: Last Vital Signs Temp 98 F 07/03/17 12:00 Pulse 58 L 07/03/17 12:00 Resp 16 07/03/17 12:00 BP 150/57 L 07/03/17 13:50 Pulse Ox 98 07/03/17 06:00 - Labs Result Diagrams: 07/03/17 05:00 07/03/17 06:00
[2017-07-03 16:00] LABS: URINE BILIRUBIN NEGATIVE (NEGATIVE); URINE BLOOD NEGATIVE (NEGATIVE); URINE GLUCOSE (UA) NEGATIVE (NEGATIVE); URINE LEUKOCYTE ESTERASE NEGATIVE Leu/uL (NEGATIVE); URINE PROTEIN 100 mg/dL (<30 mg/dL); URINE UROBILINOGEN 0.2 E.U./dL (<1 E.U./dL)
[2017-07-03 16:05] LABS: URINE APPEARANCE CLEAR (CLEAR); URINE COLOR YELLOW (YELLOW)
[2017-07-03 16:12] LABS: URINE BACTERIA MANY (NEG); URINE RBC 0 - 2 /hpf (0-2); URINE WBC 0 - 2 /hpf (0-6)
--- NOTE | 2017-07-03 17:14 | MRI ---
PROCEDURE: MRI BRAIN WITHOUT CONTRAST HISTORY: Past CVA, AMS COMPARISON: Correlation made with concurrent MRA brain. Comparison made with prior CT scan of the brain 07/01/2017 TECHNIQUE: Multiplanar, multisequence MR images of the brain were obtained without intravenous contrast enhancement. FINDINGS: HEMORRHAGE: No acute parenchymal, subarachnoid nor extra-axial hemorrhage. No evidence of hemosiderin deposition identified on gradient echo weighted sequence. There is a very tiny focus of restricted diffusion along the posterior margin of the mid terra adjacent to the anterior aspect of the 4th ventricle which could represent a very tiny acute/subacute infarct. . BRAIN PARENCHYMA: Mild to moderate diffuse and confluent chronic periventricular white matter ischemic changes seen extending peripherally into the deep and subcortical white matter both cerebral hemispheres. There are also multiple more discrete chronic appearing lacunar type infarcts scattered about deep and subcortical white matter as well as both basal nuclei and brainstem. None of these changes exhibit restricted diffusion. Moderate generalized volume loss. VENTRICLES: No obstructive hydrocephalus. CRANIUM: No acute calvarial abnormalities. ORBITS: Changes of bilateral cataract surgery again noted. PARANASAL SINUSES/MASTOIDS: Clear VASCULAR SYSTEM: Visualized major vascular flow voids at skull base patent. . OTHER FINDINGS: None. IMPRESSION: There is a very tiny focus of restricted diffusion along posterior margin the brainstem abutting the anterior margin of the 4th ventricle . Moderate chronic white matter and basal nuclei ischemic changes. Moderate generalized volume loss. Findings discussed with central floor Nurse Mana at approximately 5:10 p.m. with written down and read back verification.
--- NOTE | 2017-07-03 17:15 | MRI ---
PROCEDURE: Magnetic Resonance Angiography Brain HISTORY: AMS near syncope COMPARISON: Correlation made with concurrent MRI brain. TECHNIQUE: 3D time of flight MR angiography of the intracranial arteries was performed. Rotating maximum intensity projection images were generated. FINDINGS: INTERNAL CAROTID ARTERIES: Unremarkable. The skull base, petrous, cavernous and supraclinoid segments are bilaterally widely patient. ANTERIOR CEREBRAL ARTERIES: Unremarkable. A1 and A2 segments are widely patent. Smaller distal branches unremarkable, as visualized. MIDDLE CEREBRAL ARTERIES: Unremarkable. M1 and M2 segments are widely patent. Perisylvian branches grossly symmetric. POSTERIOR CIRCULATION: Basilar Artery: Unremarkable. Distal Vertebral Arteries: Unremarkable. Posterior Cerebral Arteries: Unremarkable. Posterior Inferior Cerebellar Arteries: Unremarkable. ANEURYSM/ VASCULAR MALFORMATIONS: None. OTHER FINDINGS: None. IMPRESSION: Unremarkable MR angiography of the brain.
[2017-07-04] MEDS: Oxycodone/Acetaminophen 5/325 mg Tab PO SCH ×5 (00:14→17:50)
[2017-07-04] MEDS: Pantoprazole 40 mg EC Tab PO SCH (05:00)
[2017-07-04 07:36] LABS: BASO # 0.01 K/mm3 (0.0-2.0); BASO % 0.1 % (0.0-3.0); EOS # 0.1 (0.0-0.7); EOS % 0.9 % (1.5-5.0); GRAN # 4.81 (1.4-6.5); GRAN % 64.7 % (50.0-68.0); HEMOGLOBIN 10.3 g/dL (12.0-16.0); LYMPH # 1.8 (1.2-3.4); LYMPH % 23.6 % (22.0-35.0); MEAN CELL VOLUME 88.4 fl (80.0-105.0); MEAN CORPUSCULAR HEMOGLOBIN 29.3 pg (25.0-35.0); MEAN CORPUSCULAR HGB CONC 33.1 g/dl (31.0-37.0); MEAN PLATELET VOLUME 10.4 fl (7.0-11.0); MONO # 0.8 (0.1-0.6); MONO % 10.7 % (1.0-6.0); RBC 3.52 10^6/uL (3.5-6.1); RED CELL DISTRIBUTION WIDTH 13.4 % (11.5-14.5); WHITE BLOOD COUNT 7.5 10^3/ul (4.5-11.0)
[2017-07-04 07:46] LABS: ALBUMIN 2.9 g/dL (3.0-4.8); CALCIUM 8.6 mg/dL (8.4-10.5)
[2017-07-04] MEDS: Insulin Reg-MEDIUM-Coverage SC SCH ×4 (08:08→22:00)
[2017-07-04] MEDS: POLYETHYLENE GLYCOL 3350 17 GM/Dose PACKET PO SCH ×3 (10:02→17:50)
[2017-07-04] MEDS: Enoxaparin 40 mg Syringe SC SCH (10:02)
[2017-07-04] MEDS: Aspirin 325 mg EC Tablets PO SCH (10:03)
--- NOTE | 2017-07-04 11:26 | PN ---
DATE: 07/04/2017 CARDIOLOGY FOLLOWUP SUBJECTIVE: The patient is still weak when she has any activity. The difficulty is also loss of balance. PHYSICAL EXAMINATION: VITAL SIGNS: Blood pressure 145/74, heart rates in the 70s, normal sinus rhythm. NECK: Negative JVD. LUNGS: Without rales. HEART: Reveals S1, S2. EXTREMITIES: Without edema. NEUROLOGIC: She has left facial weakness. LABORATORY DATA: BUN and creatinine are 36 and 1.8, glucose is 165. The hemoglobin is 10.3. IMPRESSION: 1. Weakness and loss of balance. 2. Rule out new cerebrovascular accident. 3. History of cerebrovascular accident in the past. 4. Normal left ventricular function in the past. 5. Anemia. 6. Diabetes mellitus. 7. Hypertension. 8. Hypercholesterolemia. PLAN: Given these findings, the patient will need extensive physical therapy. We will repeat echocardiogram to evaluate LV function. The patient will need extensive physical therapy. Jesus Castro MD
[2017-07-04] MEDS ORDERED: Oxycodone/Acetaminophen 5/325 mg Tab PO PRN (16:37)
[2017-07-04] MEDS ORDERED: Ergocalciferol 50,000 Intl Units Cap PO SCH (16:45)
--- NOTE | 2017-07-04 17:41 | PN ---
DATE: 07/04/2017 SUBJECTIVE: The patient is seen again lying in bed in room 277, bed 1. According to the patient herself, the patient has not been out of bed to chair all day today. The patient was found to be alert, awake, responsive. PHYSICAL EXAMINATION: VITAL SIGNS: T-max 98.3. Telemetry shows sinus rhythm. Blood pressure is 164/74, 145/74, 182/75, 150/57, 183/80, respiration 20, O2 sat 100%. HEENT: Head: Normocephalic, atraumatic. HEENT examination shows pinkish pale conjunctivae. Anicteric sclerae. No oropharyngeal lesion. Positive facial asymmetry. Positive left carotid endarterectomy surgical scar. CHEST: Kyphosis. LUNGS: Shows no rales, crackles or wheezing. CARDIOVASCULAR: S1, S2, regular rhythm. Questionable soft systolic murmur, left sternal border, right second intercostal space, left second intercostal space. ABDOMEN: Soft. Positive bowel sound. GENITALIA: Female. RECTAL: Deferred. EXTREMITIES: Shows no pitting edema, no calf numbness, no Homans' sign. NEUROLOGICAL: The patient is alert, awake, oriented x3. She is able to move upper and lower extremity without assistance. Gait examination is not tested. VASCULAR: Palpable pulses. Cranial nerves II-XII limited. DIAGNOSTICS: On 07/04/2017, WBC 7.5, hemoglobin and hematocrit 10.3 and 31.1, platelet 263. Sodium 141, potassium 4.3, chloride 108, CO2 23, anion gap 14, BUN 36, creatinine 1.8, GFR 33, glucose 177, 173, 165, 193, 182, 191, calcium 8.6, hemoglobin A1c is 7.4, uric acid is 8.9, phosphorus 3.6, magnesium 1.7. LFTs are normal. Total protein 5.7, albumin 2.9. Vitamin D 25-hydroxy 27. Homocysteine is 15.6. Thyroid profile is normal. Vitamin B12 is 757. Urinalysis, 100 protein, yeast noted. RPR negative. Urine cultures x2 negative. Blood cultures negative. The patient's MRI, MRA of the brain and carotid Doppler reviewed. Echo with Doppler, EKG reviewed and explained to the patient. IMPRESSION: 1. Acute versus subacute infarct of the posterior margin of the mid terra adjacent to the anterior aspect of the fourth ventricle. 2. Diffuse confluent chronic periventricular small-vessel ischemic disease of the brain extending into deep and subcortical white matter of bilateral cerebral hemisphere. 3. Chronic lacunar infarct of basal nuclei and brainstem. 4. Cerebral cortical atrophy of the brain. 5. Status post bilateral cataract surgery. 6. Sinus bradycardia. 7. Left ventricular ejection fraction of 64% with grade 3 reversible restrictive diastolic dysfunction. 8. Moderately thickened aortic valve with moderately sclerotic aortic valve and aortic valve sclerosis. 9. Trace valvular aortic stenosis versus aortic sclerosis. 10. Trace mitral regurgitation. 11. Trace tricuspid regurgitation. 12. Bilateral 20-39% proximal internal carotid artery stenosis with poorly visualized right internal carotid artery. 13. Uncontrolled hypertension. 14. Normocytic anemia. 15. Granulocytosis. 16. Hyperuricemia. 17. Uncontrolled insulin-requiring diabetes mellitus with hyperglycemia and hemoglobin A1c of 7.4. 18. Hyperuricemia. 19. Hyperhomocystinemia. 20. Hypovitaminosis D. 21. Mild hyperalbuminemia and mild protein malnutrition. 22. Gait dysfunction. 23. Deconditioning. 24. Chronic kidney disease stage IV. 25. Proteinuria, microscopic hematuria, questionable funguria. 26. Constipation. 27. Hyperlipidemia. 1. Near-syncope. 2. Transient uncontrolled hypertension versus hypertensive urgency (resolved). 3. Fatigue and weakness. 4. Dizziness. 5. Gait dysfunction. 6. Near syncope, etiology undetermined. 7. Sinus bradycardia. 8. Age-indeterminate anterior infarct. 9. Sinus bradycardia. 10. Mild normocytic anemia with granulocytosis. 11. Chronic kidney disease stage IV. 12. Insulin-requiring diabetes mellitus with hyperglycemia. 13. Proteinuria, microscopic hematuria, bacteriuria. 14. Sinus bradycardia with age indeterminate anterior infarct. 15. History of left carotid stenosis and left cerebral hemispheric stroke with mild residual right-sided weakness. 16. Insulin-requiring diabetes mellitus. 17. Bilateral 20-39% proximal internal carotid artery stenosis. 18. History of pulmonary hypertension with a right ventricular systolic pressure of 44 mmHg. 19. Grade 1 abnormal relaxation pattern. 20. Moderately thickened aortic valve. 21. Deconditioning. 22. Chronic pain syndrome. 23. Hyperuricemia. PLAN AT THIS TIME: We are awaiting further Neurology recommendations about the acute and subacute infarct. The patient is seen by Nephrology and Cardiology. Their recommendations noted. The patient has been ordered serial labs. CBC ordered. Consultation, Nephrology, Neurology, Cardiology. The patient's hydralazine increased to 25 mg q.i.d., Colace 100 three times a day, Ecotrin 325 mg daily, Uloric 40 mg daily, Humulin medium dose sliding scale coverage before meals and at bedtime, Lipitor 40 mg daily, Lovenox 40 mg subcu daily, MiraLax 17 g three times a day, Percocet 325 one tablet every 6 hours p.r.n. for pain, to hold for sedation and lethargy, Percocet 5/325 one tablet every 6 hours p.r.n., Plavix 75 mg daily, Protonix 40 mg daily, Zetia 10 mg daily. The patient has been ordered renal ultrasound by the outdoor illuminating engineer. Repeat EKG ordered. Echo with Doppler ordered. EEG is pending. The patient has been ordered out of bed, BELLE stockings, SCDs, physical therapy, occupational therapy. The patient will be ordered on vitamin D supplementation and folic acid. At present, the patient's further management will be dependent upon the patient's clinical condition, hemodynamic status and as per the patient response to therapeutic intervention, as per the patient's further recommendation by Neurology, Cardiology, Nephrology. As mentioned, the patient has been extensively explained about the diagnostic test results and our recommendation and the treatment plan, which she acknowledged and understand. All questions concern answered. Dictated and electronically signed, not read. Randall Powell MD [facility]
[2017-07-05] MEDS: Pantoprazole 40 mg EC Tab PO SCH (05:33)
[2017-07-05 07:01] LABS: BASO # 0.01 K/mm3 (0.0-2.0); BASO % 0.2 % (0.0-3.0); EOS # 0.1 (0.0-0.7); EOS % 1.1 % (1.5-5.0); GRAN # 4.15 (1.4-6.5); GRAN % 67.1 % (50.0-68.0); HEMOGLOBIN 10.8 g/dL (12.0-16.0); LYMPH # 1.6 (1.2-3.4); LYMPH % 25.8 % (22.0-35.0); MEAN CELL VOLUME 88.3 fl (80.0-105.0); MEAN CORPUSCULAR HEMOGLOBIN 28.7 pg (25.0-35.0); MEAN CORPUSCULAR HGB CONC 32.5 g/dl (31.0-37.0); MEAN PLATELET VOLUME 10.4 fl (7.0-11.0); MONO # 0.4 (0.1-0.6); MONO % 5.8 % (1.0-6.0); RBC 3.76 10^6/uL (3.5-6.1); RED CELL DISTRIBUTION WIDTH 13.5 % (11.5-14.5); WHITE BLOOD COUNT 6.2 10^3/ul (4.5-11.0)
[2017-07-05 07:26] LABS: ALB/GLOB RATIO 1.1 (1.1-1.8); ALBUMIN 3.1 g/dL (3.0-4.8); CALCIUM 8.3 mg/dL (8.4-10.5)
[2017-07-05] MEDS: Insulin Reg-MEDIUM-Coverage SC SCH ×4 (08:03→21:53)
[2017-07-05 08:47] LABS: IRON 22 ug/dL (45-180)
[2017-07-05 08:56] LABS: % IRON SATURATION 9 % (20-55); TOTAL IRON BINDING CAPACITY 237 ug/dL (265-497)
[2017-07-05] MEDS: Enoxaparin 40 mg Syringe SC SCH (09:47)
[2017-07-05] MEDS: Aspirin 325 mg EC Tablets PO SCH (09:47)
[2017-07-05] MEDS: POLYETHYLENE GLYCOL 3350 17 GM/Dose PACKET PO SCH ×3 (09:47→17:56)
--- NOTE | 2017-07-05 12:36 | US ---
PROCEDURE: Ultrasound of the Kidneys HISTORY: flash COMPARISON: None available. TECHNIQUE: Sonogram of the kidneys. FINDINGS: RIGHT KIDNEY: Measures: 9.6 cm. Diffusely increased cortical echogenicity. No stone, solid mass lesion or hydronephrosis visualized. LEFT KIDNEY: Measures: 8.98 cm. Diffusely increased cortical echogenicity. No stone, solid mass lesion or hydronephrosis visualized. OTHER FINDINGS: None. IMPRESSION: Bilateral diffusely echogenic kidneys consistent with medical renal disease. No mass, calculus or hydronephrosis.
--- NOTE | 2017-07-05 12:52 | CP.PCM.PN ---
Subjective - Date & Time of Evaluation Date of Evaluation: 07/05/17 Time of Evaluation: 12:48 - Subjective Subjective: Follow up Nephrology Consultation Note Assessment: Stable syncope Diabetic chronic Kidney Disease (E11.22) Hypertensive Chronic Kidney Disease (I12.9) Chronic Kidney Disease (N18.3) Stage 3 with ? mg proteinuria (R80.9) likely due to DM/HTN Anemia (D64.9), Hyperphosphatemia (E83.39), Secondary Hyperparathyroidism (E21.1 ), HTN (I12.9) hx of CVA vit D insuff Plan No acute need for renal replacement therapy at this time. stable renal function Hypertension control with meds as ordered. Patient not on ACEI/ARB but was at losartan 50 mg/day prior to hospitalization. can resume it from renal perspective Monitor Input/Output, daily weights and renal function with basic metabolic panel pt on statins supplement with iron 325 mg TID and nephrovite daily can supplement with vit D 50,000 unit once a month Check urine analysis, spot protein/creatinine and albumin/creatinine ratio Dose meds/antibiotics for reduced GFR. Avoid fleets enema/magnesium based laxatives. Avoid nephrotoxins/NSAIDs/ iodinated contrast (unless needed emergently) Glycemic control Further work up for as per primary team Thanks for allowing me to participate in care of your patient. Will follow patient with you. Please call if any Qs Dr Javier Valle Office: [phone] Subjective: Noted events overnight. Patients feels okay. Denies chest pain, palpitation, shortness of breath, leg swelling. All other negative Physical Examination: General Appearance: Comfortable, in no acute respiratory distress, co-operative . Vitals reviewed and noted as below Head; Atraumatic, normocephalic ENT: no ulcers no thrush. Tongue is midline. Oropharynx: no rash or ulcers. EYES: Pupils are equal, round and reactive to light accommodation. Eye muscles and extraocular movement intact. Sclera is anicteric. Neck; supple no lymphadenopathy, no thyromegaly or bruit Lungs: Normal respiratory rate/effort. Breath sounds bilateral equal and clear Heart: Normal rate. s1s2 normal. No rub or gallop. Extremities: no edema. No varicose veins Neurological: Patient is alert, awake and oriented to person, place and time. chronic left hemiparesis and some slurred speech Skin: Warm and dry. Normal turgor. No rash. Palpitation: Normal elasticity for age Abdomen: Abdomen is soft. Bowel sounds +. There is no abdominal tenderness, no guarding/rigidity no organomegaly Psych: normal insight and normal affect/mood MSK: no joint tenderness or swelling. Digits and nails normal, no deformity : kidney or bladder not palpable Labs/imaging reviewed. Past medical history, past surgical history, family history, social history, allergy reviewed and noted as below Family hx: no hx of CKD. Rest non-contributory renal sono: b/l echogenic kidneys TSAT 9% Ferritin 42 vit D 27 UA 100 protein Objective - Vital Signs/Intake and Output Vital Signs (last 24 hours): Temp Pulse Resp BP Pulse Ox 98.9 F 82 20 136/53 L 99 07/05/17 06:00 07/05/17 10:00 07/05/17 06:00 07/05/17 09:46 07/05/17 06:00 Intake and Output: 07/05/17 07/05/17 06:59 18:59 Intake Total 180 Output Total 1400 Balance -1220 - Medications Medications: Current Medications Aspirin (Ecotrin) 325 mg PO DAILY [facility] Last Admin: 07/05/17 09:47 Dose: 325 mg Atorvastatin Calcium (Lipitor) 40 mg PO DAILY [facility] Last Admin: 07/05/17 09:45 Dose: 40 mg Clopidogrel Bisulfate (Plavix) 75 mg PO DAILY [facility] Last Admin: 07/05/17 09:50 Dose: 75 mg Docusate Sodium (Colace) 100 mg PO TID [facility] Last Admin: 07/05/17 09:46 Dose: 100 mg Ezetimibe (Zetia) 10 mg PO DAILY [facility] Last Admin: 07/05/17 09:45 Dose: 10 mg Ergocalciferol (Drisdol 50,000 Intl Units Cap) 1 cap PO Q7D [facility] Last Admin: 07/04/17 17:51 Dose: 1 cap Ferrous Gluconate (Fergon) 324 mg PO TID [facility] Folic Acid (Folic Acid) 1 mg PO DAILY [facility] Last Admin: 07/05/17 09:48 Dose: 1 mg Heparin Sodium (Porcine) (Heparin) 5,000 units SC Q12 [facility] PRN Reason: Protocol Hydralazine HCl (Apresoline) 25 mg PO QID [facility] Last Admin: 07/05/17 09:46 Dose: 25 mg Insulin Human Regular (Humulin R Med) 0 units SC ACHS [facility] PRN Reason: Protocol Last Admin: 07/05/17 08:03 Dose: Not Given Non-Formulary Medication (Febuxostat [Uloric]) 40 mg PO DAILY [facility] Last Admin: 07/05/17 09:36 Dose: Not Given Oxycodone/Acetaminophen (Percocet 5/325 Mg Tab) 1 tab PO Q6 PRN PRN Reason: Pain, moderate (4-7) Stop: 07/10/17 18:01 Last Admin: 07/04/17 18:20 Dose: 1 tab Pantoprazole Sodium (Protonix Ec Tab) 40 mg PO 0600 [facility] Last Admin: 07/05/17 05:33 Dose: 40 mg Polyethylene Glycol (Miralax) 17 gm PO TID [facility] Last Admin: 07/05/17 09:47 Dose: 17 gm Vitamin B Complex/Vit C/Folic Acid (Nephro-Francisco) 1 tab PO 0800 [facility] - Labs Labs: 07/05/17 06:30 07/05/17 06:30 PT 11.4 SECONDS (9.4-12.5) 07/01/17 15:29 INR 1.00 (0.93-1.08) 07/01/17 15:29 APTT 24.4 Seconds (25.1-36.5) L 07/01/17 15:29
--- NOTE | 2017-07-05 13:36 | CP.PCM.PN ---
<HalieJorge boone - Last Filed: 07/05/17 13:36> Subjective - Date & Time of Evaluation Date of Evaluation: 07/05/17 Time of Evaluation: 07:45 - Subjective Subjective: Medicine progress note: Dr. Powell Patient seen and examined at bedside. No acute events overnight. Patient denies any new complaints, states that her right sided face droop is from her previous stroke. States that she is still feeling dizzy. Objective - Vital Signs/Intake and Output Vital Signs (last 24 hours): Temp Pulse Resp BP Pulse Ox 98.9 F 82 20 136/53 L 99 07/05/17 06:00 07/05/17 10:00 07/05/17 06:00 07/05/17 09:46 07/05/17 06:00 Intake and Output: 07/05/17 07/05/17 06:59 18:59 Intake Total 180 Output Total 1400 Balance -1220 - Medications Medications: Current Medications Aspirin (Ecotrin) 325 mg PO DAILY [facility] Last Admin: 07/05/17 09:47 Dose: 325 mg Atorvastatin Calcium (Lipitor) 40 mg PO DAILY [facility] Last Admin: 07/05/17 09:45 Dose: 40 mg Clopidogrel Bisulfate (Plavix) 75 mg PO DAILY [facility] Last Admin: 07/05/17 09:50 Dose: 75 mg Docusate Sodium (Colace) 100 mg PO TID [facility] Last Admin: 07/05/17 09:46 Dose: 100 mg Ezetimibe (Zetia) 10 mg PO DAILY [facility] Last Admin: 07/05/17 09:45 Dose: 10 mg Ergocalciferol (Drisdol 50,000 Intl Units Cap) 1 cap PO Q7D [facility] Last Admin: 07/04/17 17:51 Dose: 1 cap Ferrous Gluconate (Fergon) 324 mg PO TID [facility] Folic Acid (Folic Acid) 1 mg PO DAILY [facility] Last Admin: 07/05/17 09:48 Dose: 1 mg Heparin Sodium (Porcine) (Heparin) 5,000 units SC Q12 [facility] PRN Reason: Protocol Hydralazine HCl (Apresoline) 25 mg PO QID [facility] Last Admin: 07/05/17 09:46 Dose: 25 mg Insulin Human Regular (Humulin R Med) 0 units SC ACHS [facility] PRN Reason: Protocol Last Admin: 07/05/17 08:03 Dose: Not Given Non-Formulary Medication (Febuxostat [Uloric]) 40 mg PO DAILY [facility] Last Admin: 07/05/17 09:36 Dose: Not Given Oxycodone/Acetaminophen (Percocet 5/325 Mg Tab) 1 tab PO Q6 PRN PRN Reason: Pain, moderate (4-7) Stop: 07/10/17 18:01 Last Admin: 07/04/17 18:20 Dose: 1 tab Pantoprazole Sodium (Protonix Ec Tab) 40 mg PO 0600 [facility] Last Admin: 07/05/17 05:33 Dose: 40 mg Polyethylene Glycol (Miralax) 17 gm PO TID [facility] Last Admin: 07/05/17 09:47 Dose: 17 gm Vitamin B Complex/Vit C/Folic Acid (Nephro-Francisco) 1 tab PO 0800 [facility] - Labs Labs: 07/05/17 06:30 07/05/17 06:30 PT 11.4 SECONDS (9.4-12.5) 07/01/17 15:29 INR 1.00 (0.93-1.08) 07/01/17 15:29 APTT 24.4 Seconds (25.1-36.5) L 07/01/17 15:29 - Constitutional Appears: Well - Head Exam Head Exam: ATRAUMATIC, NORMAL INSPECTION, NORMOCEPHALIC Additional comments: Patient has right sided facial droop; tearing from left eye - Eye Exam Eye Exam: EOMI, Normal appearance, PERRL Pupil Exam: NORMAL ACCOMODATION, PERRL - ENT Exam ENT Exam: Mucous Membranes Moist, Normal Exam - Neck Exam Neck Exam: Full ROM, Normal Inspection. absent: Lymphadenopathy - Respiratory Exam Respiratory Exam: Clear to Ausculation Bilateral, NORMAL BREATHING PATTERN - Cardiovascular Exam Cardiovascular Exam: REGULAR RHYTHM, +S1, +S2. absent: Murmur - GI/Abdominal Exam GI & Abdominal Exam: Soft, Normal Bowel Sounds. absent: Tenderness - Extremities Exam Extremities Exam: Full ROM, Normal Capillary Refill, Normal Inspection. absent : Joint Swelling, Pedal Edema Additional comments: Patient has marked weakness on right side of body, 3/5 muscle strength vs 5/5 on left side. - Back Exam Back Exam: NORMAL INSPECTION - Neurological Exam Neurological Exam: Alert, Awake, CN II-XII Intact, Normal Gait, Oriented x3 - Psychiatric Exam Psychiatric exam: Normal Affect, Normal Mood - Skin Skin Exam: Dry, Intact, Normal Color, Warm Assessment and Plan - Assessment and Plan (Free Text) Assessment: 77 year old female with pertinent medical history of prior CVA and CAD s/p Catheterization presents with generalized weakness and near-syncope. EKG revealed NSR without arrhythmia without ST changes. CT head was negative for any acute process as well as chest XR. Patient's infectious work up so far reveals no UTI. However, patient does have creatinine 1.9 suggesting HAM which could be contributing to her weakness, and with elevated BUN/Cr ratio but producing urine, suggests a prerenal azotemia. Patient was given mild fluid resuscitation in the ED ( 1L ). Patient does not have other electrolyte disturbances that could contribute to her near syncope. Patient CT Head and MRA were non significant. Carotid doppler revealed JOSEP stenosis of 20-39%. Initial blood cultures and MRSA screen negative, urine culture negative in one tube but contaminated in second tube. Electrolyte abnormalities were not significant to cause syncope. MRI Brain revealed diffusivity which clinically correlates to probable acute CVA. Plan: Pre-Syncope, most likely 2/2 Dehydration VS HAM VS CVA; Working Dx = CVA - MRI, MRA brain; Carotid dopplers; Blood cultures, Urine cultures, sputum cultures - Modified consistency diet - PT/OT - Neurology Consult: Dr. Thomas - Cardiology Consult: Dr. Castro - ASA stat, Lipitor stat Acute on Chronic Kidney Injury - Mild fluid hydration given patient's past medical history - Avoid Nephrotoxic agents except for ASA - Nephro Consult: Dr. Williamson, Dr. Valle Urine protein, Urine microalbumin, PTH intact Anemia, likely 2/2 CKD - Iron studies, Transferrin saturation, EPO History CAD - ASA, Zetia, Bystolic - CC and HH diet History CVA - As per first assessment History HTN - Furosemide, Bystolic History IDDM - RISS Medium with Accuchecks - CC and HH diet History Gastritis - Monitor History DJD - Perc q6 MIRANDA History Anemia - Folic Acid, monitor History Gout - Febuxostat Uloric Prophylaxis - Heparin, Protonix <Sherry,Randall U - Last Filed: 07/09/17 11:46> Objective - Vital Signs/Intake and Output Vital Signs (last 24 hours): Temp Pulse Resp BP Pulse Ox 98.6 F 72 20 138/59 L 98 07/06/17 06:00 07/06/17 14:16 07/06/17 06:00 07/06/17 14:16 07/06/17 06:00 - Labs Labs: 07/05/17 06:30 07/06/17 06:15 PT 11.4 SECONDS (9.4-12.5) 07/01/17 15:29 INR 1.00 (0.93-1.08) 07/01/17 15:29 APTT 24.4 Seconds (25.1-36.5) L 07/01/17 15:29 Attending/Attestation - Attestation I have personally seen and examined this patient.: Yes I have fully participated in the care of the patient.: Yes I have reviewed all pertinent clinical information, including history, physical exam and plan: Yes Notes (Text): Please see/read my dictated notes.
--- NOTE | 2017-07-05 16:44 | PN ---
DATE: 07/05/2017 CARDIOLOGY FOLLOWUP SUBJECTIVE: The patient has no new complaints. She is still unsteady on her feet. PHYSICAL EXAMINATION: VITAL SIGNS: Blood pressure is 148/82 with the heart rates in the 80s. NECK: Negative JVD. LUNGS: Without rales. HEART: Reveals S1, S2. EXTREMITIES: Without edema. LABORATORY DATA: Hemoglobin is 10.8. Chemistries: BUN and creatinine are 34 and 1.8, glucose is 157. Echocardiogram reveals good LV function. There is no LV outflow obstruction. IMPRESSION: 1. Dizziness. 2. History of cerebrovascular accident. 3. Good left ventricular function. 4. Diabetes mellitus. 5. Hypertension. 6. Hypercholesterolemia. There is no evidence for cardiac source of her CVA or weakness. Awaiting full neurologic workup. Jesus Castro MD
[2017-07-05 21:35] VITALS: RESP 20
[2017-07-06] MEDS: Pantoprazole 40 mg EC Tab PO SCH (05:21)
[2017-07-06 06:49] LABS: ALBUMIN 3.2 g/dL (3.0-4.8); CALCIUM 8.5 mg/dL (8.4-10.5)
[2017-07-06 07:55] VITALS: TEMP 98.6; O2SAT 98
[2017-07-06] MEDS ORDERED: Multivitamin Vitamin B Complex (Nephro-Vite) Tab PO SCH (08:00)
--- NOTE | 2017-07-06 08:35 | PN ---
DATE: 07/05/2017 SUBJECTIVE: The patient is seen in room 277, bed 1. The patient is out of bed to chair. The patient is awaiting to go for ultrasound of the renal. The patient is alert, awake, responsive. Overnight nurse's notes were reviewed. The patient slept well without any adverse events documented. PHYSICAL EXAMINATION: VITAL SIGNS: T-max is 99.4. Telemetry shows sinus rhythm; heart rate 78, 81, 79; blood pressure 157/67, 136/66, 157/67; respiration 18, O2 sat is 98% to 100%. HEENT: Head: Normocephalic, atraumatic. HEENT examination shows pinkish pale conjunctivae. Anicteric sclerae. Positive facial asymmetry. Positive left carotid endarterectomy surgical scar. CHEST: Shows kyphosis. LUNGS: Shows questionable possible occasional rhonchi in the upper lung rojas. CARDIOVASCULAR: S1 and S2, regular rhythm. Positive systolic murmur, left sternal border, right second intercostal space, left second intercostal space. ABDOMEN: Soft. No hepatosplenomegaly noted. No guarding. No rigidity. No rigidity. No rebound tenderness. GENITALIA: Female. RECTAL: Deferred. EXTREMITIES: Shows trace swelling of the ankles. No pitting edema. No calf tenderness. No Caleb's signs. MUSCULOSKELETAL: Shows a body mass index of 30. NEUROLOGIC: The patient is alert, awake, responsive. Is able to move upper and lower extremity without assistance. Gait examination not tested. DIAGNOSTICS: 07/05/2017, WBC 6.2, hemoglobin and hematocrit are 10.8 and 33.2; platelet 250. Retic count 1.27. Sodium 141, potassium 4.5, chloride 108, CO2 of 22, anion gap 15, BUN 34, creatinine 1.8, GFR 33, glucose 132, calcium 8.3, phosphorus 3.4, magnesium 1.8, iron 22, TIBC 237, saturation 9, transferrin is 154, ferritin is 43. LFTs are normal. Vitamin D 25-hydroxy is 27. PTH is 115. Homocysteine 15.6. B12 is 757. RPR is negative. Blood and urine cultures all negative. Renal ultrasound shows bilateral diffuse echogenic kidneys consistent with medical renal disease. MRI of the brain, MRA of the brain, carotid Doppler noted. IMPRESSION AND PLAN: 1. Possible acute versus subacute infarct with tiny focus of restricted diffusion along the posterior margin of the mid terra adjacent to the anterior aspect of the fourth ventricle. 2. Chronic periventricular white matter ischemic disease extending peripherally into the deep and subcortical white matter of both cerebral hemisphere with chronic lacunar infarcts in deep and subcortical white matter, and basal nuclei and brainstem. 3. Chronic lacunar infarct of the basal nuclei and brainstem. 4. Cerebral cortical atrophy of the brain. 5. Bilateral diffuse echogenic kidneys consistent with medical renal disease. 6. Status post bilateral cataract surgery. 7. Bilateral 20% to 39% proximal internal carotid artery stenosis. 8. Gait dysfunction. 9. Deconditioning. 10. Normocytic anemia. 11. Granulocytosis. 12. Anemia of chronic disease with decreased iron, decreased TIBC, decreased iron saturation. 13. Chronic kidney disease stage IV. 14. Insulin-requiring diabetes mellitus, uncontrolled, with hemoglobin A1c of 7.4. 15. Hypovitaminosis D. 16. Hyperhomocysteinemia. 17. Secondary hyperparathyroidism with elevated PTH of greater than 115. 18. Proteinuria, microscopic hematuria, pyuria, questionable funguria. 19. Left ventricular ejection fraction of 64%. 20. Grade 3 reversible restrictive diastolic dysfunction. 21. Moderately sclerotic aortic valve and moderately thickened aortic valve. 22. Trace aortic regurgitation. 23. Trace valvular aortic stenosis versus aortic sclerosis. 24. Trace mitral regurgitation. 25. Trace tricuspid regurgitation. 26. Trace pulmonic regurgitation. 27. Sinus bradycardia. 28. Hypertension. 29. Constipation. 30. Hyperuricemia. 31. Hyperlipidemia. 32. Near syncope. 33. Hypertensive chronic kidney disease. 34. Hyperphosphatemia with secondary hyperparathyroidism. 1. Acute versus subacute infarct of the posterior margin of the mid terra adjacent to the anterior aspect of the fourth ventricle. 2. Diffuse confluent chronic periventricular small-vessel ischemic disease of the brain extending into deep and subcortical white matter of bilateral cerebral hemisphere. 3. Chronic lacunar infarct of basal nuclei and brainstem. 4. Cerebral cortical atrophy of the brain. 5. Status post bilateral cataract surgery. 6. Sinus bradycardia. 7. Left ventricular ejection fraction of 64% with grade 3 reversible restrictive diastolic dysfunction. 8. Moderately thickened aortic valve with moderately sclerotic aortic valve and aortic valve sclerosis. 9. Trace valvular aortic stenosis versus aortic sclerosis. 10. Trace mitral regurgitation. 11. Trace tricuspid regurgitation. 12. Bilateral 20-39% proximal internal carotid artery stenosis with poorly visualized right internal carotid artery. 13. Uncontrolled hypertension. 14. Normocytic anemia. 15. Granulocytosis. 16. Hyperuricemia. 17. Uncontrolled insulin-requiring diabetes mellitus with hyperglycemia and hemoglobin A1c of 7.4. 18. Hyperuricemia. 19. Hyperhomocystinemia. 20. Hypovitaminosis D. 21. Mild hyperalbuminemia and mild protein malnutrition. 22. Gait dysfunction. 23. Deconditioning. 24. Chronic kidney disease stage IV. 25. Proteinuria, microscopic hematuria, questionable funguria. 26. Constipation. 27. Hyperlipidemia. 1. Near-syncope. 2. Transient uncontrolled hypertension versus hypertensive urgency (resolved). 3. Fatigue and weakness. 4. Dizziness. 5. Gait dysfunction. 6. Near syncope, etiology undetermined. 7. Sinus bradycardia. 8. Age-indeterminate anterior infarct. 9. Sinus bradycardia. 10. Mild normocytic anemia with granulocytosis. 11. Chronic kidney disease stage IV. 12. Insulin-requiring diabetes mellitus with hyperglycemia. 13. Proteinuria, microscopic hematuria, bacteriuria. 14. Sinus bradycardia with age indeterminate anterior infarct. 15. History of left carotid stenosis and left cerebral hemispheric stroke with mild residual right-sided weakness. 16. Insulin-requiring diabetes mellitus. 17. Bilateral 20-39% proximal internal carotid artery stenosis. 18. History of pulmonary hypertension with a right ventricular systolic pressure of 44 mmHg. 19. Grade 1 abnormal relaxation pattern. 20. Moderately thickened aortic valve. 21. Deconditioning. 22. Chronic pain syndrome. 23. Hyperuricemia. PLAN: At this time, the patient has been ordered repeat chemistry. CURRENT MEDICATION: Hydralazine 25 mg four times a day, Colace 100 mg three times a day, Drisdol 50,000 units weekly, aspirin 325 mg daily, Uloric 40 mg daily, Fergon 324 mg 3 times a day, folic acid 1 mg daily, heparin 5000 subcu every 12, Humulin medium-dose sliding scale coverage before breakfast and at bedtime, Lipitor 40 mg daily, MiraLax 17 g three times a day, Nephro-Francisco 1 tablet daily, Percocet 5/325 one tablet every 6 hours p.r.n., Plavix 75 mg daily, Protonix 40 mg daily, Zetia 10 g daily, oxygen 2 liters nasal cannula continuous. The patient has been ordered out of bed to chair, BELLE stockings, SCDs, physical therapy, occupational therapy has been ordered. The patient seen by Speeder Hand. The patient's case referred to [facility] subacute rehab. The patient accepted to [facility] subacute rehab pending pre-certification by [facility] prior to transfer. The patient at present has been seen by Cardiology, Nephrology, Neurology. The patient will be continued on above therapeutic intervention. The patient will be considered for transfer to subacute rehab when bed available and when pre-certification completed. Dictated and electronically signed, not read. Randall Powell MD MTDD
[2017-07-06] MEDS: Aspirin 325 mg EC Tablets PO SCH (09:25)
[2017-07-06] MEDS: Insulin Reg-MEDIUM-Coverage SC SCH ×2 (09:31→12:03)
[2017-07-06] MEDS: POLYETHYLENE GLYCOL 3350 17 GM/Dose PACKET PO SCH ×2 (09:32→14:17)
[2017-07-06 14:19] VITALS: BP 138/59; PULSE 72
--- NOTE | 2017-07-06 16:27 | CP.PCM.PN ---
Subjective - Date & Time of Evaluation Date of Evaluation: 07/06/17 Time of Evaluation: 16:27 - Subjective Subjective: Follow up Nephrology Consultation Note Assessment: Stable syncope Diabetic chronic Kidney Disease (E11.22) Hypertensive Chronic Kidney Disease (I12.9) Chronic Kidney Disease (N18.3) Stage 3 with ? mg proteinuria (R80.9) likely due to DM/HTN Anemia (D64.9), Hyperphosphatemia (E83.39), Secondary Hyperparathyroidism (E21.1 ), HTN (I12.9) hx of CVA vit D insuff Plan No acute need for renal replacement therapy at this time. stable renal function Hypertension control with meds as ordered. Patient not on ACEI/ARB but was at losartan 50 mg/day prior to hospitalization. can resume it from renal perspective Monitor Input/Output, daily weights and renal function with basic metabolic panel pt on statins supplement with iron 325 mg TID and nephrovite daily can supplement with vit D 50,000 unit once a month Check urine analysis, spot protein/creatinine and albumin/creatinine ratio Dose meds/antibiotics for reduced GFR. Avoid fleets enema/magnesium based laxatives. Avoid nephrotoxins/NSAIDs/ iodinated contrast (unless needed emergently) Glycemic control Further work up for as per primary team Thanks for allowing me to participate in care of your patient. Will follow patient with you. Please call if any Qs Dr Javier Valle Office: [phone] Subjective: Noted events overnight. Patients feels okay. Denies chest pain, palpitation, shortness of breath, leg swelling. All other negative Physical Examination: General Appearance: Comfortable, in no acute respiratory distress, co-operative . Vitals reviewed and noted as below Head; Atraumatic, normocephalic ENT: no ulcers no thrush. Tongue is midline. Oropharynx: no rash or ulcers. EYES: Pupils are equal, round and reactive to light accommodation. Eye muscles and extraocular movement intact. Sclera is anicteric. Neck; supple no lymphadenopathy, no thyromegaly or bruit Lungs: Normal respiratory rate/effort. Breath sounds bilateral equal and clear Heart: Normal rate. s1s2 normal. No rub or gallop. Extremities: no edema. No varicose veins Neurological: Patient is alert, awake and oriented to person, place and time. chronic left hemiparesis and some slurred speech Skin: Warm and dry. Normal turgor. No rash. Palpitation: Normal elasticity for age Abdomen: Abdomen is soft. Bowel sounds +. There is no abdominal tenderness, no guarding/rigidity no organomegaly Psych: normal insight and normal affect/mood MSK: no joint tenderness or swelling. Digits and nails normal, no deformity : kidney or bladder not palpable Labs/imaging reviewed. Past medical history, past surgical history, family history, social history, allergy reviewed and noted as below Family hx: no hx of CKD. Rest non-contributory renal sono: b/l echogenic kidneys TSAT 9% Ferritin 42 vit D 27 UA 100 protein Objective - Vital Signs/Intake and Output Vital Signs (last 24 hours): Temp Pulse Resp BP Pulse Ox 98.6 F 72 20 138/59 L 98 07/06/17 06:00 07/06/17 14:16 07/06/17 06:00 07/06/17 14:16 07/06/17 06:00 Intake and Output: 07/06/17 07/06/17 06:59 18:59 Intake Total 240 840 Output Total 200 Balance 40 840 - Medications Medications: Current Medications Aspirin (Ecotrin) 325 mg PO DAILY [facility] Last Admin: 07/06/17 09:25 Dose: 325 mg Atorvastatin Calcium (Lipitor) 40 mg PO DAILY [facility] Last Admin: 07/06/17 09:31 Dose: 40 mg Clopidogrel Bisulfate (Plavix) 75 mg PO DAILY [facility] Last Admin: 07/06/17 09:33 Dose: 75 mg Docusate Sodium (Colace) 100 mg PO TID [facility] Last Admin: 07/06/17 14:17 Dose: 100 mg Ezetimibe (Zetia) 10 mg PO DAILY [facility] Last Admin: 07/06/17 09:33 Dose: 10 mg Ergocalciferol (Drisdol 50,000 Intl Units Cap) 1 cap PO Q7D [facility] Last Admin: 07/04/17 17:51 Dose: 1 cap Ferrous Gluconate (Fergon) 324 mg PO TID [facility] Last Admin: 07/06/17 14:17 Dose: 324 mg Folic Acid (Folic Acid) 1 mg PO DAILY [facility] Last Admin: 07/06/17 09:27 Dose: 1 mg Heparin Sodium (Porcine) (Heparin) 5,000 units SC Q12 [facility] PRN Reason: Protocol Last Admin: 07/06/17 09:30 Dose: 5,000 units Hydralazine HCl (Apresoline) 25 mg PO QID [facility] Last Admin: 07/06/17 14:16 Dose: 25 mg Insulin Human Regular (Humulin R Med) 0 units SC ACHS [facility] PRN Reason: Protocol Last Admin: 07/06/17 12:03 Dose: 3 units Non-Formulary Medication (Febuxostat [Uloric]) 40 mg PO DAILY [facility] Last Admin: 07/06/17 09:27 Dose: Not Given Oxycodone/Acetaminophen (Percocet 5/325 Mg Tab) 1 tab PO Q6 PRN PRN Reason: Pain, moderate (4-7) Stop: 07/10/17 18:01 Last Admin: 07/04/17 18:20 Dose: 1 tab Pantoprazole Sodium (Protonix Ec Tab) 40 mg PO 0600 [facility] Last Admin: 07/06/17 05:21 Dose: 40 mg Polyethylene Glycol (Miralax) 17 gm PO TID [facility] Last Admin: 07/06/17 14:17 Dose: Not Given Vitamin B Complex/Vit C/Folic Acid (Nephro-Francisco) 1 tab PO 0800 [facility] Last Admin: 07/06/17 09:32 Dose: 1 tab - Labs Labs: 07/05/17 06:30 07/06/17 06:15 PT 11.4 SECONDS (9.4-12.5) 07/01/17 15:29 INR 1.00 (0.93-1.08) 07/01/17 15:29 APTT 24.4 Seconds (25.1-36.5) L 07/01/17 15:29
--- NOTE | 2017-07-06 18:50 | CARD ---
APPROVED REPORT Reason for Test: BRADYCARDIA / DIZZINESS / NEAR SYNCOPE Hookup date: 2017-07-02 Scan date: 2017-07-05 Recording time: 23 HR 59 MIN Heart Rate Data Total Beats: 82116 Min HR: 47 BPM at 3:41AM Avg HR: 56 BPM Max HR: 73 BPM at 3:11PM Supraventricular Ectopy Total VE Beats: 23 (0.0%) Atrial Pairs: 1 Events Longest R-R: 1.4 sec at 6:13 AM Single PAC's: 21 Conclusion SINUS RHYTHM / SINUS BRADYCARDIA MINIMUM HR 47 BPM MAXIMUM HR 73 BPM ISOLATED APC'S, PAIRED DIARY WAS NOT AVAILABLE.
--- NOTE | 2017-07-07 11:58 | DS ---
HISTORY OF PRESENT ILLNESS: Patient is seen lying in room 361, bed 1. Overnight nurse's notes were reviewed. Patient is now accepted to [facility] for subacute rehab for 2 to 3 weeks. Patient denies any complaints. PHYSICAL EXAMINATION: VITAL SIGNS: T-max 99.4 down to 98.6, heart rate 78, blood pressure 140/60, respiration 20, O2 sat 95% to 98%. HEENT: Head examination normocephalic, atraumatic. HEENT examination shows pinkish pale conjunctivae. Anicteric sclerae. Positive facial asymmetry. Positive carotid endarterectomy surgical scar. CARDIOVASCULAR: S1, S2, regular rhythm. Positive systolic murmur left sternal border, right second intercostal space, left second intercostal space. ABDOMEN: Soft. Positive bowel sounds. No hepatosplenomegaly noted. No guarding. No rigidity. No rebound tenderness. GENITALIA: Female. LUNGS: No rales, crackles, or wheezing. EXTREMITIES: Showed no pitting edema, no calf tenderness, no Homans sign. NEUROLOGIC: Patient is alert, awake, responsive, oriented to person, place, and time. Gait examination is not tested. MUSCULOSKELETAL: Examination shows a body mass index of 30. DIAGNOSTICS: On 07/06, sodium 139; potassium 4.4; chloride 106; CO2 23; anion gap 14; BUN 35; creatinine 1.8; GFR 33; glucose 200, 135, 135, 165; calcium 8.5; phosphorus 3.3; magnesium 1.1. AST 42, rest of the LFTs are normal. Erythropoietin 7.2. Holter monitor shows sinus bradycardia. IMPRESSION AND PLAN: 1. Near syncope. 2. Possible acute versus subacute infarct with tiny focus of restricted diffusion along the posterior margin of the mid terra adjacent to the anterior aspect of the fourth ventricle. 3. Chronic periventricular white matter small vessel ischemic disease of the brain extending peripherally into the deep and subcortical white matter of both cerebral hemisphere with chronic lacunar infarcts scattered about deep and subcortical white matter and bilateral basal nuclei and brainstem. 4. Cerebral cortical atrophy of the brain. 5. Status post bilateral cataract surgery. 6. Hypertension. 7. Bradycardia. 8. Mild normocytic anemia. 9. Granulocytosis. 10. Chronic kidney disease, stage III/IV. 11. Transaminitis. 12. Hypovitaminosis D. 13. Secondary hyperparathyroidism with elevated parathyroid hormone of greater than 115. 14. Hyperhomocysteinemia. 15. Uncontrolled insulin-requiring diabetes mellitus with hemoglobin A1c of 7.4. 16. Proteinuria, microscopic hematuria, pyuria, funguria. 17. Gait dysfunction. 18. History of left carotid endarterectomy. 19. History of Hickman's palsy with facial asymmetry. 20. Left ventricular ejection fraction of 64%. 21. Grade 3 reversible restrictive diastolic dysfunction. 22. Moderately thickened aortic valve with moderately sclerotic aortic valve with trace valvular aortic stenosis versus aortic sclerosis. 23. Thickened mitral valve with trace mitral regurgitation. 24. Thickened tricuspid valve. 25. Trace tricuspid regurgitation. 26. Trace pulmonic valvular regurgitation. 1. Possible acute versus subacute infarct with tiny focus of restricted diffusion along the posterior margin of the mid terra adjacent to the anterior aspect of the fourth ventricle. 2. Chronic periventricular white matter ischemic disease extending peripherally into the deep and subcortical white matter of both cerebral hemisphere with chronic lacunar infarcts in deep and subcortical white matter, and basal nuclei and brainstem. 3. Chronic lacunar infarct of the basal nuclei and brainstem. 4. Cerebral cortical atrophy of the brain. 5. Bilateral diffuse echogenic kidneys consistent with medical renal disease. 6. Status post bilateral cataract surgery. 7. Bilateral 20% to 39% proximal internal carotid artery stenosis. 8. Gait dysfunction. 9. Deconditioning. 10. Normocytic anemia. 11. Granulocytosis. 12. Anemia of chronic disease with decreased iron, decreased TIBC, decreased iron saturation. 13. Chronic kidney disease stage IV. 14. Insulin-requiring diabetes mellitus, uncontrolled, with hemoglobin A1c of 7.4. 15. Hypovitaminosis D. 16. Hyperhomocysteinemia. 17. Secondary hyperparathyroidism with elevated PTH of greater than 115. 18. Proteinuria, microscopic hematuria, pyuria, questionable funguria. 19. Left ventricular ejection fraction of 64%. 20. Grade 3 reversible restrictive diastolic dysfunction. 21. Moderately sclerotic aortic valve and moderately thickened aortic valve. 22. Trace aortic regurgitation. 23. Trace valvular aortic stenosis versus aortic sclerosis. 24. Trace mitral regurgitation. 25. Trace tricuspid regurgitation. 26. Trace pulmonic regurgitation. 27. Sinus bradycardia. 28. Hypertension. 29. Constipation. 30. Hyperuricemia. 31. Hyperlipidemia. 32. Near syncope. 33. Hypertensive chronic kidney disease. 34. Hyperphosphatemia with secondary hyperparathyroidism. 1. Acute versus subacute infarct of the posterior margin of the mid terra adjacent to the anterior aspect of the fourth ventricle. 2. Diffuse confluent chronic periventricular small-vessel ischemic disease of the brain extending into deep and subcortical white matter of bilateral cerebral hemisphere. 3. Chronic lacunar infarct of basal nuclei and brainstem. 4. Cerebral cortical atrophy of the brain. 5. Status post bilateral cataract surgery. 6. Sinus bradycardia. 7. Left ventricular ejection fraction of 64% with grade 3 reversible restrictive diastolic dysfunction. 8. Moderately thickened aortic valve with moderately sclerotic aortic valve and aortic valve sclerosis. 9. Trace valvular aortic stenosis versus aortic sclerosis. 10. Trace mitral regurgitation. 11. Trace tricuspid regurgitation. 12. Bilateral 20-39% proximal internal carotid artery stenosis with poorly visualized right internal carotid artery. 13. Uncontrolled hypertension. 14. Normocytic anemia. 15. Granulocytosis. 16. Hyperuricemia. 17. Uncontrolled insulin-requiring diabetes mellitus with hyperglycemia and hemoglobin A1c of 7.4. 18. Hyperuricemia. 19. Hyperhomocystinemia. 20. Hypovitaminosis D. 21. Mild hyperalbuminemia and mild protein malnutrition. 22. Gait dysfunction. 23. Deconditioning. 24. Chronic kidney disease stage IV. 25. Proteinuria, microscopic hematuria, questionable funguria. 26. Constipation. 27. Hyperlipidemia. 1. Near-syncope. 2. Transient uncontrolled hypertension versus hypertensive urgency (resolved). 3. Fatigue and weakness. 4. Dizziness. 5. Gait dysfunction. 6. Near syncope, etiology undetermined. 7. Sinus bradycardia. 8. Age-indeterminate anterior infarct. 9. Sinus bradycardia. 10. Mild normocytic anemia with granulocytosis. 11. Chronic kidney disease stage IV. 12. Insulin-requiring diabetes mellitus with hyperglycemia. 13. Proteinuria, microscopic hematuria, bacteriuria. 14. Sinus bradycardia with age indeterminate anterior infarct. 15. History of left carotid stenosis and left cerebral hemispheric stroke with mild residual right-sided weakness. 16. Insulin-requiring diabetes mellitus. 17. Bilateral 20-39% proximal internal carotid artery stenosis. 18. History of pulmonary hypertension with a right ventricular systolic pressure of 44 mmHg. 19. Grade 1 abnormal relaxation pattern. 20. Moderately thickened aortic valve. 21. Deconditioning. 22. Chronic pain syndrome. 23. Hyperuricemia. Plan at this time, patient seen by the social media assistant. Patient accepted to [facility]. Patient will be discharged to [facility] under Dr. Powell's service. DISCHARGE MEDICATIONS: 1. Lipitor 40 mg daily. 2. Renal Caps softgel 1 capsule daily. 3. Plavix 75 mg daily. 4. Colace 100 mg three times a day. 5. Drisdol 50,000 units weekly. 6. Zetia 10 mg daily. 7. Uloric 40 mg daily. 8. Fergon (ferrous gluconate) 324 mg three times a day. 9. Folic acid 1 mg daily. 10. Hydralazine 25 mg four times a day. 11. Humalog sliding scale coverage. 12. Percocet 5/325 one tablet every 6 hours p.r.n. 13. Protonix 40 mg daily. 14. MiraLax 17 g three times a day. 15. Nephro-Francisco 1 tablet daily. Patient is to be discharged to [facility] under Dr. Powell's service. Discharge meds as per ambulatory orders. Time spent in the entire discharge process, more than 45 minutes. Dictated and electronically signed, not read. Randall Powell MD MTDD
--- NOTE | 2017-07-12 08:10 | EEG ---
DATE: 07/02/2017 Technical Information: Electrodes were placed according to the 10-20 International electrode system by cat scan technologist. Total of 23 electrodes (21 EEG and 2 EKG) were placed. EEG activity was digitally recorded referentially to P1/P2 or A1/A2 electrodes. Continuous monitoring with EEG was performed using digital analysis for spike detection. The [employer] spike and seizure detection algorithms were used for digital EEG analysis throughout the monitoring period to screen the EEG in real-time and dimitri the data file with pointers to electrographic seizures and interictal discharges. EEG was screened for electrographic seizures and interictal discharges by a technologist. Physician, epileptologist reviewed detections as well as extensive random samples and whole EEG study in detail. Digital EEG Analysis: Was carried out including FFT (Fast Fourier Transform), R2D2 (Rhythmicity Run Detection and Display), Relative Asymmetry Spectrogram, and voltage plot by the [employer]. The qualitative EEG analysis and the voltage plot mapping were used for detection of foci of paroxysmal and abnormal electrical cortical activity. General Description: Background Rhythm: There is a well-formed, 8-10 Hz posterior dominant rhythm that is reactive, symmetric, and attenuates with eye opening. There was a normal amount of frontal beta noted bilaterally. There is no sleep recorded. Activation Procedures: Photic stimulation: There is no driving noted. Hyperventilation: There is slowing noted that is self-remitted. Abnormal Activity: There are no focal epileptiform discharges noted. No clinical or subclinical seizures noted. IMPRESSION: This is a normal awake and drowsy EEG. Clinical correlation is required. Marlon Pino MD
== END 2017-07-06 17:12 ==
LOC: ED 10:12 → ERH 13:48 → 2RSO 17:26 → OBSVTOIN 07-03 08:35 → INTOOBSV 07-03 08:35 → 3RNO 07-05 21:14
PROVIDERS: ADMIT Internal Medicine; ATTEND Internal Medicine
DX: R55 Syncope and collapse (principal); N18.4 Chronic kidney disease, stage 4 (severe); N17.9 Acute kidney failure, unspecified; N25.81 Secondary hyperparathyroidism of renal origin; E44.1 Mild protein-calorie malnutrition; I69.351 Hemiplegia and hemiparesis following cerebral infarction affecting right dominant side; N39.0 Urinary tract infection, site not specified; E86.0 Dehydration; D63.8 Anemia in other chronic diseases classified elsewhere; E11.22 Type 2 diabetes mellitus with diabetic chronic kidney disease; I12.9 Hypertensive chronic kidney disease with stage 1 through stage 4 chronic kidney disease, or unspecified chronic kidney disease; E11.65 Type 2 diabetes mellitus with hyperglycemia; E55.9 Vitamin D deficiency, unspecified; E78.00 Pure hypercholesterolemia, unspecified; E78.5 Hyperlipidemia, unspecified; E83.39 Other disorders of phosphorus metabolism; G89.4 Chronic pain syndrome; I25.10 Atherosclerotic heart disease of native coronary artery without angina pectoris; I27.20 Pulmonary hypertension, unspecified; I65.23 Occlusion and stenosis of bilateral carotid arteries; K59.00 Constipation, unspecified; M19.90 Unspecified osteoarthritis, unspecified site; R31.29 Other microscopic hematuria; Z79.02 Long term (current) use of antithrombotics/antiplatelets; Z79.4 Long term (current) use of insulin; Z79.899 Other long term (current) drug therapy; Z88.0 Allergy status to penicillin; R00.1 Bradycardia, unspecified; E79.0 Hyperuricemia without signs of inflammatory arthritis and tophaceous disease; I16.0 Hypertensive urgency; I95.1 Orthostatic hypotension; Z98.42 Cataract extraction status, left eye; Z98.41 Cataract extraction status, right eye; G31.9 Degenerative disease of nervous system, unspecified; I08.8 Other rheumatic multiple valve diseases
CPT/HCPCS: 36415; 70450; 70544; 70551; 71045; 76770; 80053; 80061; 81001; 82248; 82306; 82550; 82607; 82668; 82728; 82746; 82948; 83036; 83090; 83540; 83615; 83735; 83970; 84100; 84238; 84439; 84443; 84466; 84484; 84550; 85025; 85044; 85610; 85730; 86592; 87040; 87086; 92526; 92610; 93005; 93225; 93226; 93306; 93880; 95812; 96360; 96372; 97110; 97116; 97162; 97530; 99285; G0378; G8978; G8979; G8996; G8997; J1644; J1650; J7030

== ENCOUNTER 2017-08-21 14:24 | Observation (INO) | payer OTHER ==
[2017-08-21 14:25] VITALS: BMI 28.8
[2017-08-21] MEDS ORDERED: Sodium Chloride 0.9% 1,000 ML IV STA (15:06)
--- NOTE | 2017-08-21 15:42 | ED PDOC ---
Arrival/HPI <Asuncion Gallego - Last Filed: 08/21/17 20:54> - General Historian: Patient <Yoni Allison - Last Filed: 08/21/17 21:30> - General Chief Complaint: Syncope Time Seen by Provider: 08/21/17 14:46 - History of Present Illness Narrative History of Present Illness (Text): 77 year old female with a PMH significant for stroke 2 years ago with residual left face symptoms, diabetes, hypertension, presents with loss of consciousness this morning when she went to [employer]. Patient reports diaphoresis and weakness in stomach that started right before she lost consciousness. According to her daughter, her eyes rolled to the back of her head, but she lost consciousness. Patient was here 3 week ago for a similar near syncopal episode. On presentation , patient appears pleasant and her blood pressure is 190/96. Patient denies any headache, fever, dizziness, chest pain, shortness of breath, abdominal pain, vomiting, constipation, diarrhea, dysuria, and hematuria. (Asuncion Gallego) Past Medical History - Provider Review Nursing Documentation Reviewed: Yes - Infectious Disease Hx of Infectious Diseases: None - Tetanus Immunization Tetanus Immunization: Unknown - Cardiac Hx Cardiac Disorders: Yes (CAD, s/p cardiac cath) Hx Hypertension: Yes - Pulmonary Hx Respiratory Disorders: No - Neurological HX Cerebrovascular Accident: Yes (2 years ago and last week) - HEENT Hx HEENT Disorder: No - Renal Hx Renal Failure: Yes - Endocrine/Metabolic Hx Diabetes Mellitus Type 2: Yes - Hematological/Oncological Hx Blood Transfusions: No Hx Blood Transfusion Reaction: No - Integumentary Hx Dermatological Disorder: No - Musculoskeletal/Rheumatological Hx Musculoskeletal Disorders: Yes Hx Arthritis: Yes - Gastrointestinal Hx Gastrointestinal Disorders: No - Genitourinary/Gynecological Hx Genitourinary Disorders: No - Psychiatric Hx Emotional Abuse: No Hx Physical Abuse: No Hx Substance Use: No - Past Surgical History Past Surgical History: No Previous - Surgical History Hx Carotid Endarterectomy: Yes - Anesthesia Hx Anesthesia: Yes Hx Anesthesia Reactions: No Hx Malignant Hyperthermia: No - Suicidal Assessment Feels Threatened In Home Enviroment: No <Asuncion Gallego - Last Filed: 08/21/17 20:54> Family/Social History - Physician Review Nursing Documentation Reviewed: Yes Family/Social History: Unknown Family HX Smoking Status: Never Smoked Hx Alcohol Use: No Hx Substance Use: No Hx Substance Use Treatment: No <Irina Gallegoleoncio - Last Filed: 08/21/17 20:54> Allergies/Home Meds <Irina Gallegovinmillie - Last Filed: 08/21/17 20:54> <Allison,Yoni P - Last Filed: 08/21/17 21:30> Allergies/Adverse Reactions: Allergies Penicillins Allergy (Verified 08/21/17 14:43) ITCHING Home Medications: Home Meds Medication Instructions Recorded Confirmed oxyCODONE/Acetaminophen [Percocet 1 tab PO Q6 04/29/15 07/01/17 5/325 mg Tab] Atorvastatin Calcium 40 mg PO DAILY 07/01/17 07/01/17 B Complex W-C No.20/Folic Acid 1 mg PO DAILY 07/01/17 07/01/17 [Renal Caps Softgel] Ezetimibe [Zetia] 10 mg PO DAILY 07/01/17 07/01/17 Febuxostat [Uloric] 40 mg PO DAILY 07/01/17 07/01/17 Insulin Lispro [humALOG] 0 units SC AC 07/01/17 07/01/17 Review of Systems - Physician Review All systems were reviewed & negative as marked: Yes - Review of Systems Constitutional: Normal Eyes: Normal Respiratory: Normal Cardiovascular: Normal Gastrointestinal: Normal Musculoskeletal: Normal Skin: Normal Neurological: Speech Changes (residual speech change from prior stroke), Facial Droop (residual facial droop from prior stroke), Other <Irina Gallegovinmillie - Last Filed: 08/21/17 20:54> Physical Exam Vital Signs Reviewed: Yes Temperature: Afebrile Blood Pressure: Hypertensive Pulse: Regular Respiratory Rate: Normal Appearance: Positive for: Well-Appearing Pain Distress: None Mental Status: Positive for: Alert and Oriented X 3 Finger Stick Blood Glucose: 171 - Systems Exam Head: Present: Atraumatic, Normocephalic Pupils: Present: PERRL Extroacular Muscles: Present: EOMI Pharnyx: Present: Normal Nose (External): Present: Atraumatic Respiratory/Chest: Present: Clear to Auscultation Cardiovascular: Present: Regular Rate and Rhythm Abdomen: Present: Normal Bowel Sounds Upper Extremity: Present: Normal Inspection, Normal ROM, NORMAL PULSES Lower Extremity: Present: Normal Inspection, NORMAL PULSES, Normal ROM Neurological: Present: GCS=15, Motor Func Grossly Intact (strength +5/5 throughout), Normal Sensory Function. No: CN II-XII Intact (facial droop on right from prior stroke. unchanged) Skin: Present: Warm, Dry Psychiatric: Present: Alert, Oriented x 3, Normal Insight, Normal Concentration <Asuncion Gallego - Last Filed: 08/21/17 20:54> Vital Signs Reviewed: Yes <Yoni Allison P - Last Filed: 08/21/17 21:30> Vital Signs Temp Pulse Resp BP Pulse Ox 08/21/17 18:26 79 175/98 H 08/21/17 18:02 78 18 173/85 H 100 08/21/17 16:21 86 17 184/89 H 100 08/21/17 14:39 98.1 F 70 17 186/79 H 100 Medical Decision Making <Asuncion Gallego - Last Filed: 08/21/17 20:54> - Lab Interpretations I have reviewed the lab results: Yes - RAD Interpretation Student Financial Services Counselor: Radiologist - EKG Interpretation Interpreted by ED Physician: Yes Type: 12 lead EKG <Yoni Allison P - Last Filed: 08/21/17 21:30> ED Course and Treatment: Impression: 77 year old female with PMH of prior stroke 2 years ago presents with diaphoresis, weakness of the stomach, and loss of consciousness. Assessment: DDx: Vasovagal/situation/orthostatic hypotension syncope, stroke, cardiac arrhythmia, myocardial infarction, seizure, hypoglycemia, hypocalcemia, Subdural hematoma, TBI, anemia Plan: CBC ordered for evaluating for anemia. CMP ordered to evaluate for electrolyte causes for loss of consciousness including hyponatremia, hypoglycemia, hypocalcemia. Orthostatic vitals ordered for evaluation for orthostatic hypotension. Head CT ordered for evaluation of subdural hematoma or other intracranial bleed. Urinanalysis ordered for potential UTI or blood in urine. IV fluids NS 0.9% ordered for potential dehydration. 08/21/17 16:08 Patient will be admitted to the floors to evaluate for syncope vs. stroke. 08/21/17 16:44 Patient's CBC reveals Hemoglobin at 9.5, while CMP reveals creatinine at 2.1. ( Asuncion Gallego) 08/21/17 EKG: Ordered, reviewed and independently interpreted the EKG. Rate: 75 BPM Rhythm: NSR Interpretation: flattening V4 ,5, and 6. No ectopy. Non-specific EKG changes. 08/21/17 17:35 ATTending NOTE: 77 yo F with hx of CVA and HTN, noncompliant with ASA, uncontrolled HTN, with spontaneous syncopal episode CT shows multiple lacunars, EKG shows no ectopy, slightly worsening renal function. will admit for cardiogenic syncope vs cva. vs vasovagal. not a stroke alert due to no new focal deficits, of note this is how her cva. given ASA. pt however does have a hx of bradycardia as well, will; call dr. Powell. 08/21/17 In agreement with resident note, which includes further HPI details. Patient was seen and evaluated with resident, came up with plan and treatment together. (Yoni Allison) - Lab Interpretations Lab Results: 08/21/17 14:45 08/21/17 14:45 Lab Results 08/21/17 16:53: Urine Color Yellow, Urine Appearance Clear, Urine pH 6.0, Ur Specific [place] 1.015, Urine Protein 100 H, Urine Glucose (UA) Negative, Urine Ketones Negative, Urine Blood Negative, Urine Nitrate Negative, Urine Bilirubin Negative, Urine Urobilinogen 0.2, Ur Leukocyte Esterase Negative, Urine RBC 0 - 2, Urine WBC 0 - 2, Ur Epithelial Cells 1 - 3, Urine Bacteria Small 08/21/17 14:45: PT 11.3, INR 0.99, APTT 27.9 08/21/17 14:45: Sodium 141, Potassium 4.6, Chloride 103, Carbon Dioxide 26, Anion Gap 18, BUN 38 H, Creatinine 2.1 H, Est GFR ( Amer) 28, Est GFR ( Non-Af Amer) 23, Random Glucose 160 H, Calcium 9.3, Total Creatine Kinase 71, Troponin I < 0.01 08/21/17 14:45: WBC 7.4, RBC 3.26 L, Hgb 9.5 L, Hct 28.8 L, MCV 88.3, MCH 29.1, MCHC 33.0, RDW 13.4, Plt Count 312, MPV 10.1, Gran % 69.9 H, Lymph % (Auto) 25.4 , [place] % (Auto) 4.3, Eos % (Auto) 0.3 L, Baso % (Auto) 0.1, Gran # 5.20, Lymph # (Auto) 1.9, [place] # (Auto) 0.3, Eos # (Auto) 0.0, Baso # (Auto) 0.01 08/21/17 14:38: POC Glucose (mg/dL) 179 H - RAD Interpretation Radiology Orders: 08/21/17 15:45 HEAD W/O CONTRAST [CT] Stat 08/21/17 16:54 CHEST PORTABLE [RAD] Stat - Medication Orders Current Medication Orders: Acetaminophen (Tylenol 325mg Tab) 650 mg PO Q6 PRN PRN Reason: TEMP>=99.5F Acetaminophen (Tylenol 650 Mg Supp) 650 mg RC Q6H PRN PRN Reason: TEMP>=99.5F Aspirin (Ecotrin) 81 mg PO DAILY [facility] Last Admin: 08/21/17 20:03 Dose: 81 mg Atorvastatin Calcium (Lipitor) 40 mg PO DAILY [facility] Last Admin: 08/21/17 18:32 Dose: 40 mg Clopidogrel Bisulfate (Plavix) 75 mg PO DAILY [facility] Last Admin: 08/21/17 18:25 Dose: 75 mg Docusate Sodium (Colace) 100 mg PO TID [facility] Last Admin: 08/21/17 18:25 Dose: 100 mg Last Bowel Movement Document 08/21/17 18:25 [facility] (Rec: 08/21/17 18:25 [facility] [id number]) Last Bowel Movement Last Bowel Movement 08/21/17 Ezetimibe (Zetia) 10 mg PO DAILY [facility] Last Admin: 08/21/17 19:39 Dose: 10 mg Ergocalciferol (Drisdol 50,000 Intl Units Cap) 1 cap PO Q7D [facility] Last Admin: 08/21/17 18:31 Dose: 1 cap Folic Acid (Folic Acid) 1 mg PO DAILY [facility] Last Admin: 08/21/17 18:25 Dose: 1 mg Heparin Sodium (Porcine) (Heparin) 5,000 units SC Q8 [facility] PRN Reason: Protocol Home Med (Home Med) 40 unit PO DAILY [facility] Hydralazine HCl (Apresoline) 25 mg PO QID [facility] Last Admin: 08/21/17 18:26 Dose: 25 mg MAR Pulse and Blood Pressure Document 08/21/17 18:26 [facility] (Rec: 08/21/17 18:27 [facility] [id number]) Pulse Pulse Rate (60-90 beats/min) 79 Blood Pressure Blood Pressure (100/60-150/90 mm Hg) 175/98 Insulin Human Lispro (Humalog) 0 units SC AC [facility] PRN Reason: Protocol Non-Formulary Medication (B Complex W-C No.20/Folic Acid [Renal Caps Softgel]) 1 mg PO DAILY [facility] Ondansetron HCl (Zofran Inj) 4 mg IVP Q4H PRN PRN Reason: Nausea/Vomiting Oxycodone/Acetaminophen (Percocet 5/325 Mg Tab) 1 tab PO Q6 PRN PRN Reason: Pain, moderate (4-7) Stop: 08/24/17 18:01 Last Admin: 08/21/17 18:27 Dose: 1 tab MAR Pain Assessment Document 08/21/17 18:27 [facility] (Rec: 08/21/17 18:27 [facility] [id number]) Pain Reassessment Is this a pain reassessment? Yes Sleep Is patient sleeping during reassessment? No Presence of Pain Presence of Pain Yes Pain Scale Used Pain Scale Used Numeric Location Pain Location Body Proposal Review Analyst Description Intensity of Pain at present 6 Pantoprazole Sodium (Protonix Ec Tab) 40 mg PO 0600 [facility] Polyethylene Glycol (Miralax) 17 gm PO TID [facility] Last Admin: 08/21/17 18:31 Dose: 17 gm Vitamin B Complex/Vit C/Folic Acid (Nephro-Francisco) 1 tab PO 0800 [facility] Discontinued Medications Sodium Chloride (Sodium Chloride 0.9%) 1,000 mls @ 500 mls/hr IV .Q2H STA Stop: 08/21/17 17:05 Last Admin: 08/21/17 15:21 Dose: 500 mls/hr eMAR Start Stop Document 08/21/17 15:21 [facility] (Rec: 08/21/17 15:21 [facility] [id number]) Intravenous Solution Start Date 08/21/17 Start Time 15:21 End Date 08/21/17 End time 17:22 Total Infusion Time 121 <Asuncion Gallego - Last Filed: 08/21/17 20:54> - PA / TOY PAINTER / Resident Statement SARAHY has reviewed & agrees with the documentation as recorded. MD/DO has examined the patient and agrees with the treatment plan. - Scribe Statement The provider has reviewed the documentation as recorded by the Scribe <Yoni Allison - Last Filed: 08/21/17 21:30> - Scribe Statement Ashley Karma Provider Scribe Attestation: All medical record entries made by the Scribe were at my direction and personally dictated by me. I have reviewed the chart and agree that the record accurately reflects my personal performance of the history, physical exam, medical decision making, and the department course for this patient. I have also personally directed, reviewed, and agree with the discharge instructions and disposition. (Yoni Allison) Disposition/Present on Arrival - Present on Arrival Any Indicators Present on Arrival: No History of DVT/PE: No History of Uncontrolled Diabetes: No Urinary Catheter: No History of Decub. Ulcer: No History Surgical Site Infection Following: None - Disposition Have Diagnosis and Disposition been Completed?: Yes Disposition Time: 20:56 Patient Plan: Admission <Asuncion Gallego - Last Filed: 08/21/17 20:54> <Yoni Allison - Last Filed: 08/21/17 21:30> - Disposition Diagnosis: Syncope Disposition: HOME/ ROUTINE Patient Problems: Current Active Problems Problem Status Onset Syncope Acute Condition: GOOD
[2017-08-21 15:45] LABS: BLOOD UREA NITROGEN 38 mg/dL (7-21); CALCIUM 9.3 mg/dL (8.4-10.5); GFR AFRICAN-AMERICAN 28; GFR NON-AFRICAN AMERICAN 23
[2017-08-21 15:56] LABS: TROPONIN I < 0.01 ng/mL
[2017-08-21 16:19] LABS: BASO # 0.01 K/mm3 (0.0-2.0); BASO % 0.1 % (0.0-3.0); EOS % 0.3 % (1.5-5.0); GRAN # 5.2 (1.4-6.5); GRAN % 69.9 % (50.0-68.0); HEMOGLOBIN 9.5 g/dL (12.0-16.0); LYMPH # 1.9 (1.2-3.4); LYMPH % 25.4 % (22.0-35.0); MEAN CELL VOLUME 88.3 fl (80.0-105.0); MEAN CORPUSCULAR HEMOGLOBIN 29.1 pg (25.0-35.0); MEAN PLATELET VOLUME 10.1 fl (7.0-11.0); MONO # 0.3 (0.1-0.6); MONO % 4.3 % (1.0-6.0); RBC 3.26 10^6/uL (3.5-6.1); RED CELL DISTRIBUTION WIDTH 13.4 % (11.5-14.5); WHITE BLOOD COUNT 7.4 10^3/ul (4.5-11.0)
--- NOTE | 2017-08-21 17:19 | CT ---
Date of service: 08/21/2017 PROCEDURE: CT HEAD WITHOUT CONTRAST. HISTORY: syncope COMPARISON: 07/01/2017 TECHNIQUE: Axial computed tomography images were obtained through the head/brain without intravenous contrast. Radiation dose: Total exam DLP = 983 mGy-cm. This CT exam was performed using one or more of the following dose reduction techniques: Automated exposure control, adjustment of the mA and/or kV according to patient size, and/or use of iterative reconstruction technique. FINDINGS: HEMORRHAGE: No intracranial hemorrhage. BRAIN: No mass effect or edema. There is a chronic appearing lacunar infarct on the left side of the terra VENTRICLES: Unremarkable. No hydrocephalus. CALVARIUM: Unremarkable. PARANASAL SINUSES: Unremarkable as visualized. No significant inflammatory changes. MASTOID AIR CELLS: Unremarkable as visualized. No inflammatory changes. OTHER FINDINGS: None. IMPRESSION: Chronic microvascular changes. Chronic lacunar infarct left side of the terra. No acute findings
[2017-08-21 17:33] LABS: URINE BILIRUBIN NEGATIVE (NEGATIVE); URINE BLOOD NEGATIVE (NEGATIVE); URINE GLUCOSE (UA) NEGATIVE (NEGATIVE); URINE LEUKOCYTE ESTERASE NEGATIVE Leu/uL (NEGATIVE); URINE PROTEIN 100 mg/dL (<30 mg/dL); URINE UROBILINOGEN 0.2 E.U./dL (<1 E.U./dL)
--- NOTE | 2017-08-21 17:44 | RAD ---
Date of service: 08/21/2017 HISTORY: r/o infiltrate COMPARISON: 07/01/2017 FINDINGS: LUNGS: No active pulmonary disease. PLEURA: No significant pleural effusion identified, no pneumothorax apparent. CARDIOVASCULAR: Normal. OSSEOUS STRUCTURES: No significant abnormalities. VISUALIZED UPPER ABDOMEN: Normal. OTHER FINDINGS: None. IMPRESSION: No active disease.
[2017-08-21 17:51] LABS: URINE APPEARANCE CLEAR (CLEAR); URINE COLOR YELLOW (YELLOW)
[2017-08-21] MEDS ORDERED: Ergocalciferol 50,000 Intl Units Cap PO SCH (18:00)
[2017-08-21] MEDS ORDERED: Oxycodone/Acetaminophen 5/325 mg Tab PO SCH (18:00)
[2017-08-21] MEDS ORDERED: Oxycodone/Acetaminophen 5/325 mg Tab PO PRN (18:13)
[2017-08-21 18:14] LABS: URINE BACTERIA SMALL (NEG); URINE RBC 0 - 2 /hpf (0-2); URINE WBC 0 - 2 /hpf (0-6)
[2017-08-21 18:15] LABS: INR 0.99 (0.93-1.08); PARTIAL THROMBOPLASTIN TIME 27.9 Seconds (25.1-36.5); PROTHROMBIN TIME 11.3 SECONDS (9.4-12.5)
[2017-08-21] MEDS ORDERED: POLYETHYLENE GLYCOL 3350 17 GM/Dose PACKET PO SCH (18:15)
[2017-08-21] MEDS: POLYETHYLENE GLYCOL 3350 17 GM/Dose PACKET PO SCH (18:31)
[2017-08-21 20:19] LABS: ALB/GLOB RATIO 1.2 (1.1-1.8); ALBUMIN 3.9 g/dL (3.0-4.8); ALT/SGPT 9 U/L (7-56); AST/SGOT 20 U/L (14-36); BLOOD UREA NITROGEN 36 mg/dL (7-21); CALCIUM 9.2 mg/dL (8.4-10.5); GFR AFRICAN-AMERICAN 31; GFR NON-AFRICAN AMERICAN 26
[2017-08-21 20:30] LABS: TROPONIN I < 0.01 ng/mL
[2017-08-21] MEDS: ULORIC 40MG PO SCH (21:57)
[2017-08-21 22:43] LABS: TROPONIN I < 0.01 ng/mL
[2017-08-22] MEDS: Pantoprazole 40 mg EC Tab PO SCH (06:21)
[2017-08-22 06:23] LABS: BASO # 0.01 K/mm3 (0.0-2.0); BASO % 0.2 % (0.0-3.0); EOS % 0.7 % (1.5-5.0); GRAN # 3.66 (1.4-6.5); HEMOGLOBIN 9.6 g/dL (12.0-16.0); LYMPH # 1.9 (1.2-3.4); LYMPH % 31.3 % (22.0-35.0); MEAN CELL VOLUME 88.3 fl (80.0-105.0); MEAN CORPUSCULAR HEMOGLOBIN 28.8 pg (25.0-35.0); MEAN CORPUSCULAR HGB CONC 32.7 g/dl (31.0-37.0); MEAN PLATELET VOLUME 9.8 fl (7.0-11.0); MONO # 0.4 (0.1-0.6); MONO % 6.8 % (1.0-6.0); RBC 3.33 10^6/uL (3.5-6.1); RED CELL DISTRIBUTION WIDTH 13.7 % (11.5-14.5)
[2017-08-22 06:53] LABS: ALBUMIN 3.7 g/dL (3.0-4.8); ALT/SGPT 13 U/L (7-56); AST/SGOT 41 U/L (14-36); BILIRUBIN,DIRECT 0.2 mg/dL (0.0-0.4); BLOOD UREA NITROGEN 31 mg/dL (7-21); CALCIUM 9.2 mg/dL (8.4-10.5); GFR AFRICAN-AMERICAN 33; GFR NON-AFRICAN AMERICAN 27; HDL CHOLESTEROL 57 mg/dL (29-60)
[2017-08-22 06:55] LABS: LDL CHOLESTEROL 86 mg/dL (0-129)
[2017-08-22 08:37] LABS: IRON 49 ug/dL (45-180)
[2017-08-22] MEDS: Multivitamin Vitamin B Complex (Nephro-Vite) Tab PO SCH (08:51)
[2017-08-22] MEDS: Insulin Human NPH 1 UNITS/0.01 ML SC SCH ×2 (08:51→17:39)
[2017-08-22 08:52] LABS: % IRON SATURATION 20 % (20-55); TOTAL IRON BINDING CAPACITY 247 ug/dL (265-497)
[2017-08-22] MEDS: Insulin Lispro 1 UNITS/0.01 ML SC SCH ×3 (08:52→17:38)
--- NOTE | 2017-08-22 09:41 | MRI ---
Date of service: 08/21/2017 PROCEDURE: MRI BRAIN WITHOUT CONTRAST HISTORY: SYNCOPE/CVA COMPARISON: 07/03/2017 MRI TECHNIQUE: Multiplanar, multisequence MR images of the brain were obtained without intravenous contrast enhancement. FINDINGS: HEMORRHAGE: None DWI: No evidence of an acute or early subacute infarction. BRAIN PARENCHYMA: No mass effect or edema. Chronic microvascular changes are seen in the periventricular white matter and within the terra. VENTRICLES: Unremarkable. No hydrocephalus. CRANIUM: Unremarkable. ORBITS: Grossly unremarkable. PARANASAL SINUSES/MASTOIDS: Clear VASCULAR SYSTEM: Skull base flow voids intact. OTHER FINDINGS: None. IMPRESSION: No acute intracranial findings
--- NOTE | 2017-08-22 09:42 | MRI ---
Date of service: 08/21/2017 PROCEDURE: Magnetic Resonance Angiography Brain HISTORY: CVA/SYNCOPE COMPARISON: None available. TECHNIQUE: 3D time of flight MR angiography of the intracranial arteries was performed. Rotating maximum intensity projection images were generated. FINDINGS: INTERNAL CAROTID ARTERIES: Unremarkable. The skull base, petrous, cavernous and supraclinoid segments are bilaterally widely patient. ANTERIOR CEREBRAL ARTERIES: Unremarkable. A1 and A2 segments are widely patent. Smaller distal branches unremarkable, as visualized. MIDDLE CEREBRAL ARTERIES: Unremarkable. M1 and M2 segments are widely patent. Perisylvian branches grossly symmetric. POSTERIOR CIRCULATION: Basilar Artery: Unremarkable. Distal Vertebral Arteries: Unremarkable. Posterior Cerebral Arteries: Unremarkable. Posterior Inferior Cerebellar Arteries: Unremarkable. ANEURYSM/ VASCULAR MALFORMATIONS: None. OTHER FINDINGS: None. IMPRESSION: Unremarkable MR angiography of the brain.
[2017-08-22] MEDS ORDERED: Multivitamin Vitamin B Complex (Nephro-Vite) Tab PO SCH (10:00)
--- NOTE | 2017-08-22 10:19 | CARD ---
APPROVED REPORT Date of service: 08/21/2017 EKG Measurement Heart [id number] <Conclusion> Normal sinus rhythm Minimal voltage criteria for LVH, may be normal variant Borderline ECG
[2017-08-22] MEDS: POLYETHYLENE GLYCOL 3350 17 GM/Dose PACKET PO SCH ×3 (10:56→17:39)
[2017-08-22] MEDS: ULORIC 40MG PO SCH (10:59)
--- NOTE | 2017-08-22 11:06 | CARD ---
APPROVED REPORT Date of service: 08/22/2017 EKG Measurement Heart [id number] <Conclusion> Normal sinus rhythm Nonspecific ST and T wave abnormality Abnormal ECG
--- NOTE | 2017-08-22 12:05 | HP ---
HISTORY OF PRESENT ILLNESS: The patient is a 77-year-old -[place] female who was brought into the Emergency Room by the EMS ambulance. According to the patient's daughter and the son who were present at the bedside, the patient was in her usual state of health until today when the [facility] the [facility] today and started to feel hot and felt like she is going to pass out, but according to the patient's daughter, the patient fully and completely passed out and lost consciousness. The above symptoms were as per the triage note. According to the patient's ER physician evaluation note, the patient presented with loss of consciousness when she went to the [facility]. The patient reports diaphoresis and weakness in the stomach that started right before she lost consciousness. According to the daughter, the patient's eyes rolled back of the head and the patient lost consciousness. REVIEW OF SYSTEMS: A 13-system review was done, pertinent positive and negative dictated above. CODE STATUS: Full code. LIVING WILL ADVANCE DIRECTIVE: None. ALLERGIES: PENICILLIN. Height is 5 feet 5 inches. Weight is 135. BMI is 22.5. CURRENT MEDICATIONS: 1. Hydralazine 25 mg four times a day. 2. Lipitor mg daily. 3. Colace 100 mg three times a day. 4. Drisdol 50,000 units weekly. 5. Ferrous gluconate three times a day. 6. Folic acid 5 mg daily. 7. Humalog sliding scale coverage. 8. MiraLax 17 g three times a day. 9. Nephro-Francisco 1 tablet daily. 10. Percocet 5/325 one tablet every 6 hours p.r.n. 11. Plavix 75 mg daily. 12. Protonix 40 mg daily. 13. Renal capsule, 1 capsule daily. 14. Uloric 40 mg daily. 15. Zetia 10 mg daily. According to the patient and the patient's daughter, the patient for unknown reason, stopped taking aspirin and Plavix, though the patient's medications are on the profile. PAST MEDICAL AND SURGICAL HISTORY: History of cerebral infarct, history of Hickman palsy, history of left carotid endarterectomy and left carotid stenosis, history of facial asymmetry, history of stroke, history of TIA, history of hypertension, history of bradycardia, history of hyperlipidemia, history of constipation, history of hypovitaminosis D, history of anemia and iron-deficiency anemia, history of chronic kidney disease stage 3/4, history of hyperhomocysteinemia, history of uncontrolled insulin-requiring diabetes mellitus with hemoglobin A1c of 7.4, history of diabetic gastroparesis, history of cervical and lumbar spine degenerative disk disease, history of chronic pain syndrome secondary to the lumbar spine degenerative disk disease and hips and knees degenerative joint disease; history of hyperuricemia. The patient's past medical history is significant for gait dysfunction, history of near syncope, history of acute versus subacute infarct in the posterior margin of the mid terra adjacent to the anterior aspect of the fourth ventricle, history of chronic small-vessel ischemic disease of the brain extending peripherally into the deep and subcortical white matter of bilateral cerebral hemisphere with chronic lacunar infarcts throughout the subcortical white matter and bilateral basal nuclei and brainstem, history of cerebral cortical atrophy of the brain, history of bilateral cataract surgery, history of transaminitis, history of secondary hyperparathyroidism with elevated PTH level of greater than 115, history of proteinuria, microscopic hematuria, pyuria, funguria, history of grade 3 reversible restrictive diastolic dysfunction, history of aortic valve thickening and moderately sclerotic and thickened aortic valve, history of trace valvular aortic stenosis versus aortic sclerosis, history of trace mitral regurgitation and thickened mitral valve, history of thickened tricuspid valve, history of trace tricuspid regurgitation, history of trace pulmonic valve regurgitation, history of bilateral diffuse echogenic kidneys, history of 20%-39% proximal internal carotid artery stenosis, history of deconditioning, history of hyperphosphatemia, history of sinus bradycardia, history of dizziness, history of grade 1 abnormal relaxation pattern. The patient's past medical history is also significant for history of cardiac catheterization, history of tubular adenoma of the transverse colon, history of polypectomy, history of esophageal candidiasis, chronic gastritis, history of osteomyelitis of the hands, history of hysterectomy, history of urinary retention, history of cervical spine degenerative disk disease with foramen stenosis, history of left-sided pontine chronic lacunar infarct with microvascular ischemic disease of the brain, history of severe degenerative joint disease of the shoulder, history of colonoscopy, history of polypectomy, history of diverticulosis, history of colonic polyp, history of cellulitis of the finger, history of osteomyelitis of the right hand finger, history of bladder diverticulum, history of colonic diverticulosis, history of left middle cerebellar peduncle subacute infarct, history of ventriculomegaly, history of 40%-59% proximal right internal carotid artery stenosis, history of residual mild stenosis of the left proximal internal carotid arteries and on the recent MRI of 02/2017, history of high-grade 85%-90% stenosis of the left proximal internal carotid artery, history of normal stress test done in 2016. The patient is seen in stretcher #1 in the Emergency Room. The patient's family is at bedside. PHYSICAL EXAMINATION: GENERAL: The patient is alert, awake, responsive. The patient does not appear to be in any distress. VITAL SIGNS: T max is 98.1; pulse 70, 86, 78; blood pressure 186/79, 184/89, 173/85; respirations 18; O2 sat 100%. HEAD: Normocephalic and atraumatic. EENT: Shows positive facial asymmetry. Positive flattening of the left nasolabial fold. Positive left carotid endarterectomy surgical scar. Questionable soft carotid bruit. Pinkish pale conjunctivae. CHEST: Kyphosis. LUNGS: Shows no rales, crackles, or wheezing. CARDIOVASCULAR: S1, S2, regular rhythm. Questionable soft systolic murmur in left second intercostal space, right second intercostal space, left sternal border. ABDOMEN: Soft. Positive bowel sounds. GENITALIA: Female. RECTAL: Deferred. EXTREMITIES: Show no pitting edema, no calf tenderness, no Homans' sign. NEUROLOGIC: The patient is alert, awake, oriented x3; is able to move upper and lower extremities without assistance. Gait examination is not tested. Questionable weakness of the right side noted, which is chronic. MUSCULOSKELETAL: Shows a body mass index of 22.5. Cranial nerves II-XII limited. PSYCHIATRIC: Negative. DIAGNOSTICS: On 08/21/2017, WBC 7.4, hemoglobin and hematocrit 9.5 and 29, platelet 312. Granulocytes 70% segs. PT/PTT 11.3/27.9. Sodium 143 and 141, potassium 4.6 and 5, chloride 103 and 106, CO2 of 26, anion gap 16 or 18, BUN and creatinine 38 and 2.1 and 36 and 1.9, GFR 31. Glucose 179, 160, 139. Calcium 9.2. LFTs are normal. Troponin two sets are negative. Urine pH 6, specific gravity 1.015, 100 protein, small bacteria, rest of it is negative. The patient's CT of the head was done in the Emergency Room which shows chronic left pontine lacunar infarct and chronic microvascular ischemic disease of the brain. Chest x-ray was done which was negative. EKG is done, but the results are pending. The patient was seen and evaluated in the Emergency Room by the ER physician, Dr. Allison. The patient was evaluated and the patient was advised to be admitted to Telemetry for syncope. IMPRESSION: 1. Syncope, etiology undetermined. 2. Uncontrolled hypertension. 3. Normocytic iron-deficiency anemia. 4. History of critical carotid stenosis, status post carotid endarterectomy. 5. Mild right-sided weakness. 6. Normocytic anemia. 7. Granulocytosis. 8. Chronic kidney disease stage 4. 9. Insulin-requiring diabetes mellitus with hyperglycemia. 10. Left pontine chronic lacunar infarct. 11. Chronic microvascular ischemic disease of the brain with ventriculomegaly and cerebral cortical atrophy of the brain. 12. Gait dysfunction. 13. Deconditioning. 14. Chronic degenerative joint disease of the spine and knees and hips. 15. Bradycardia. 16. Constipation. 17. Hyperuricemia. 18. Hypovitaminosis D. 19. Hypercholesteremia. 20. Chronic iron-deficiency anemia and anemia of chronic kidney disease. PLAN: At this time, the patient is to be admitted to Telemetry. The patient's further management will be dependent upon the patient's clinical condition, hemodynamic status, and the patient's diagnostic and therapeutic intervention. At present, the patient has been ordered level of vitamin D 25-hydroxy, B12, folate, hemoglobin A1c, homocysteine level, lipid panel, vitamin B12 ordered. CMP, LFT, magnesium ordered. Serial CPK, troponin ordered. fructose homocysteine ordered. Repeat CBC ordered. The patient was seen in the Emergency Room by the ER physician. Blood cultures ordered. Consultation of Cardiology, Neurology. Diabetic education ordered. TCU evaluation ordered. CURRENT MEDICATIONS: Hydralazine 25 mg four times a day, Renal capsule 1 capsule daily, Colace 100 mg three times a day, Drisdol 50,000 units weekly, Ecotrin 81 mg daily, folic acid 1 mg daily, heparin 5000 subcu every 8 hours, Uloric 40 mg daily. In addition, the patient is on Humalog sliding scale coverage before meals, NPH 10 units with breakfast and 10 units with dinner, Lipitor 40 mg daily, MiraLax 17 g three times a day, Nephro-Francisco 1 tablet daily, Percocet 5 per 325 one tablet every 6 hours p.r.n. for pain, Plavix 75 daily, Protonix 40 mg daily, Tylenol 650 mg every 6 hours p.r.n., Zetia 10 mg daily, Zofran 4 mg IV every 4 hours p.r.n. MRI, MRA of the brain ordered. Carotid Doppler is ordered. Repeat EKG ordered. EEG ordered. Consistent carbohydrate diet ordered. Fingerstick blood sugar before meals and at bedtime ordered. Out of bed to chair, BELLE stockings, SCDs, occupational and physical therapy, speech and swallow evaluation ordered. At present, the patient's condition, diagnoses, need for further diagnostic and therapeutic intervention, need for hospitalization, need for further management, need for evaluation by Cardiology and Neurology and need for further diagnostic and therapeutic intervention and need for hospitalization discussed and explained to the patient and the patient's family, the son and the daughter who were present at the bedside. All questions concerned were answered. Dictated and electronically signed, not read. Randall Powell MD
[2017-08-22 12:38] LABS: FERRITIN 27.8 ng/mL
--- NOTE | 2017-08-22 12:58 | PN ---
DATE: 08/22/2017 SUBJECTIVE: The patient is seen after the patient completed the EEG. The patient is seen lying in the bed. The patient is awake, responsive. Does not offer any complaints of syncope, loss of consciousness, dizziness or any seizure activity. Overnight nurses' notes were reviewed. The patient slept well without any adverse events documented. OBJECTIVE: VITAL SIGNS: T-max 98.6, Telemetry sinus rhythm; heart rate 68, 66, 65, 80. monitor car operator reviewed, sinus rhythm. Blood pressure 158/72,162/66, 188/75; respirations 20; O2 sat 100%. Patient is seen lying in the stretcher. HEENT: Head examination, normocephalic and atraumatic. Positive facial asymmetry. Positive flattening of the left nasolabial fold. Pale conjunctivae. Anicteric sclerae. Questionable soft carotid bruit. CHEST: Examination, kyphosis. LUNGS: Examination, shows no rales, crackles or wheezing. CARDIOVASCULAR: Examination, S1 and S2, regular rhythm. Questionable soft systolic murmur, left sternal border, right second intercostal space. ABDOMEN: Soft. Positive bowel sounds. No hepatosplenomegaly noted. No guarding. No rigidity. No rebound tenderness. No costovertebral angle tenderness. GENITALIA: Female. RECTAL: Examination is deferred. EXTREMITIES: Shows no pitting edema, no calf tenderness, no Homans' sign. NEUROLOGIC: The patient is alert, awake, oriented x3. The patient has weakness of the right side upper and lower extremity with a motor strength of 4+ to 5- /5. MUSCULOSKELETAL: Examination shows a body mass index of 27. DIAGNOSTICS: WBC 6, hemoglobin and hematocrit 9.6 and 29.4, platelets 306, reticulocyte count 1.5. Sodium 145, potassium 4.3, chloride 107, CO2 27, anion gap 14, BUN 31, creatinine 1.8, GFR 33, glucose 150, calcium 9.2, magnesium 2, iron 49, TIBC 247, saturation 20, AST 41, cholesterol 193, LDL 86, HDL 55. Troponin all three sets are negative. MRI and MRA of the brain results reviewed and explained to the patient. IMPRESSION AND PLAN: 1. Syncope. 2. Questionable seizure. 3. Syncope with loss of consciousness, etiology undetermined. 4. Hypertension. 5. History of cerebral infarct, history of left carotid stenosis status post left carotid endarterectomy, history of right-sided residual weakness. 6. Normocytic iron-deficiency anemia. 7. Granulocytosis. 8. Chronic kidney disease stage III/IV. 9. Insulin-requiring diabetes mellitus with hyperglycemia. 10. Iron deficiency. 11. Proteinuria and bacteriuria. 12. Chronic microvascular ischemic disease of the periventricular white matter and terra. 13. Hypertensive cardiovascular disease. 14. Deconditioning. 15. Gait dysfunction. 16. Left pontine chronic lacunar infarct. 17. Cerebral cortical atrophy of the brain. 18. Vitamin B12 deficiency. 19. Hypovitaminosis D. 20. Constipation. 21. Insulin-requiring diabetes mellitus. 22. Hypercholesteremia. 23. Chronic degenerative joint disease of the cervical and lumbar spine and degenerative joint disease of the hips and knees. PLAN: At this time, the patient is awaiting carotid ultrasound. The patient is awaiting Neurology and Cardiology evaluation and recommendations, which is pending. The patient's vitamin D, B12 and homocysteine level is pending. Ferritin level is pending. Hemoglobin A1c is pending. The patient is referred to health promotion educator, TCU evaluation. The patient is on hydralazine 25 mg four times a day, Colace 100 mg three times a day, Drisdol 50,000 units weekly, aspirin 81 mg p.o. daily, folic acid 1 mg daily, heparin 5000 subcu every 8 hours, Uloric 40 mg daily, Humalog medium dose sliding scale coverage before meals and at bedtime, NPH 10 units with breakfast and 10 units with supper, Venofer 200 mg IV daily, Lipitor 40 mg daily, MiraLax 17 g three times a day, Nephro-Francisco 1 tablet daily, Percocet 5/325 one tablet every 6 hours p.r.n., Plavix 75 mg daily, Protonix 40 mg daily, Tylenol p.o. suppository every 6 hours p.r.n., Zetia 10 mg daily, Zofran 4 mg IV every 4 hours p.r.n. Carotid Doppler pending. EEG results pending. Neurology and Cardiology evaluation pending. Out of bed to chair, physical therapy, occupational therapy, ambulation therapy ordered. The patient updated about her condition and diagnosis. Dictated and electronically signed, not read. Randall Powell MD [facility] # [id number]
[2017-08-22 13:08] LABS: FOLATE > 20.0 ng/mL
--- NOTE | 2017-08-22 14:15 | CP.PCM.PN ---
Subjective - Date & Time of Evaluation Date of Evaluation: 08/22/17 Time of Evaluation: 10:00 - Subjective Subjective: Beronica Fernandes, PGY2, Progress Note for Dr Liao: Patient seen and examined at bedside. No acute events overnight. Patient denies dizziness, new syncopal episodes, nausea, vomiting, diarrhea, abdominal pain, leg swelling. Objective - Vital Signs/Intake and Output Vital Signs (last 24 hours): Temp Pulse Resp BP Pulse Ox 98.6 F 63 18 184/63 H 100 08/22/17 12:00 08/22/17 12:00 08/22/17 12:00 08/22/17 12:00 08/22/17 06:00 Intake and Output: 08/22/17 08/22/17 06:59 18:59 Intake Total 240 Output Total 800 Balance -560 - Medications Medications: Current Medications Acetaminophen (Tylenol 325mg Tab) 650 mg PO Q6 PRN PRN Reason: TEMP>=99.5F Acetaminophen (Tylenol 650 Mg Supp) 650 mg RC Q6H PRN PRN Reason: TEMP>=99.5F Aspirin (Ecotrin) 81 mg PO DAILY [facility] Last Admin: 08/22/17 10:56 Dose: 81 mg Atorvastatin Calcium (Lipitor) 40 mg PO DAILY [facility] Last Admin: 08/22/17 10:55 Dose: 40 mg Clopidogrel Bisulfate (Plavix) 75 mg PO DAILY [facility] Last Admin: 08/22/17 10:55 Dose: 75 mg Docusate Sodium (Colace) 100 mg PO TID [facility] Last Admin: 08/22/17 10:55 Dose: 100 mg Ezetimibe (Zetia) 10 mg PO DAILY [facility] Last Admin: 08/22/17 10:56 Dose: 10 mg Ergocalciferol (Drisdol 50,000 Intl Units Cap) 1 cap PO Q7D [facility] Last Admin: 08/21/17 18:31 Dose: 1 cap Folic Acid (Folic Acid) 1 mg PO DAILY [facility] Last Admin: 08/22/17 10:56 Dose: 1 mg Heparin Sodium (Porcine) (Heparin) 5,000 units SC Q8 MIRANDA PRN Reason: Protocol Last Admin: 08/22/17 05:38 Dose: 5,000 units Home Med (Home Med) 40 unit PO DAILY [facility] Last Admin: 08/22/17 10:59 Dose: Not Given Hydralazine HCl (Apresoline) 25 mg PO QID [facility] Last Admin: 08/22/17 10:55 Dose: 25 mg Iron Sucrose 200 mg/ Sodium (Chloride) 110 mls @ 110 mls/hr IVPB DAILY [facility] Stop: 08/24/17 10:59 Last Admin: 08/22/17 11:38 Dose: 110 mls/hr Insulin Human Lispro (Humalog) 0 units SC AC [facility] PRN Reason: Protocol Last Admin: 08/22/17 11:41 Dose: 3 units Insulin Human NPH (Humulin N) 10 units SC ACB [facility] Last Admin: 08/22/17 08:51 Dose: 10 units Insulin Human NPH (Humulin N) 10 units SC DAILY@1745 MIRANDA Ondansetron HCl (Zofran Inj) 4 mg IVP Q4H PRN PRN Reason: Nausea/Vomiting Oxycodone/Acetaminophen (Percocet 5/325 Mg Tab) 1 tab PO Q6 PRN PRN Reason: Pain, moderate (4-7) Stop: 08/24/17 18:01 Last Admin: 08/21/17 18:27 Dose: 1 tab Pantoprazole Sodium (Protonix Ec Tab) 40 mg PO 0600 [facility] Last Admin: 08/22/17 06:21 Dose: 40 mg Polyethylene Glycol (Miralax) 17 gm PO TID [facility] Last Admin: 08/22/17 10:56 Dose: 17 gm Vitamin B Complex/Vit C/Folic Acid (Nephro-Francisco) 1 tab PO 0800 [facility] Last Admin: 08/22/17 08:51 Dose: 1 tab - Labs Labs: 08/22/17 05:20 08/22/17 05:20 PT 11.3 SECONDS (9.4-12.5) 08/21/17 14:45 INR 0.99 (0.93-1.08) 08/21/17 14:45 APTT 27.9 Seconds (25.1-36.5) 08/21/17 14:45 - Constitutional Appears: Non-toxic, No Acute Distress - Head Exam Head Exam: ATRAUMATIC, NORMOCEPHALIC - Eye Exam Eye Exam: EOMI, PERRL. absent: Conjunctival injection, Nystagmus, Scleral icterus Additional comments: + facial asymmetry - ENT Exam ENT Exam: Mucous Membranes Moist - Neck Exam Neck Exam: Full ROM - Respiratory Exam Respiratory Exam: Clear to Ausculation Bilateral, NORMAL BREATHING PATTERN. absent: Accessory Muscle Use, Chest Wall Tenderness, Rales, Rhonchi, Stridor - Cardiovascular Exam Cardiovascular Exam: RRR, +S1, +S2. absent: Murmur - GI/Abdominal Exam GI & Abdominal Exam: Soft, Normal Bowel Sounds. absent: Distended, Guarding, Rigid, Tenderness, Mass, Organomegaly, Rebound - Extremities Exam Extremities Exam: Normal Inspection. absent: Calf Tenderness, Pedal Edema - Back Exam Back Exam: NORMAL INSPECTION - Neurological Exam Neurological Exam: Alert, Awake, Oriented x3 - Psychiatric Exam Psychiatric exam: Normal Affect, Normal Mood - Skin Skin Exam: Dry, Normal Color, Warm Assessment and Plan - Assessment and Plan (Free Text) Assessment: 77 year old female with PMH CVA with residual speech/facial asymmetry, HTN, DM, lacunar infarcts, presents s/p syncopal episode: Syncope: 2/2 seizure vs CVA vs arrhythmia vs carotid artery stenosis vs valvular vs orthostatic vs vasovagal - EEG done, pending results - Neuro on board. f/u recs. - CT head shows chronic lacunar infarct left side of terra - MRI and MRA brain negative. - UA neg for infection - Tele monitoring - EKG shows HR 75 NSR. Qtc 462 ms. - Echo 06/2017 shows EF 64.5% - trops neg x3 - Cardiology on board. f/u recs. - f/u orthostatic VS - Monitor CKD: - Cr 1.8 (baseline is 1.8) - avoid nephrotoxic agents Iron deficiency anemia: - Hgb stable - will administer IV iron 200 mg x3 Hx of HTN: - home hydralazine - monitor Hx of HLD: - lipitor Hx of prior CVA: - ASA, plavix Hx of DM: - home insulin - ISS - monitor PPX: protonix, heparin sq Case seen and discussed with Dr liao. Beronica Fernandes, PGY2
--- NOTE | 2017-08-22 17:10 | CON ---
DATE: 08/22/2017 NEUROLOGY CONSULTATION CHIEF COMPLAINT: Syncope. HISTORY OF PRESENT ILLNESS: This is a 77-year-old woman with past medial history of type 2 diabetes mellitus, hypertension, history of CVA, residual left-sided weakness, facial droop presented with loss of consciousness while she went to the [facility], who was diaphoretic, weakness in the stomach just before she lost consciousness. Her eyes rolled back in her head and she lost consciousness for a few seconds. She had a similar syncopal episode perhaps a few weeks ago. Currently, her blood pressures are stable. MRI and MRA of the head showed no acute intracranial abnormalities. She is on aspirin, Plavix and statin for stroke prevention. She has elevated systolic blood pressures which needs to be corrected. She has elevated reticulocyte count with a hemoglobin A1c of 7.7. Her B12 was normal with . Currently, she is following all commands and moving all extremities equally. PAST MEDICAL HISTORY: As above. ALLERGIES: PENICILLIN. SOCIAL HISTORY: No illicit drug use, smoking or EtOH abuse. MEDICATIONS: Reviewed by nurse per reconciliation sheet. FAMILY HISTORY: Noncontributory. REVIEW OF SYSTEMS: Fourteen-point review of systems is negative except as per the HPI. LABORATORY DATA: Sodium is 145, potassium of 4.3, chloride of 107, carbon dioxide of 27, BUN of 31, creatinine of 1.8, random glucose of 150, A1c of 7.7. PHYSICAL EXAMINATION: VITAL SIGNS: Temperature of 98.6, pulse rate of 63, blood pressure 184/63, respiratory rate of 18, oxygen saturation 100% by room air. GENERAL: The patient is sitting up in bed, in no acute distress. HEENT: Atraumatic, normocephalic. PERRLA. Extraocular muscles intact. NECK: Supple. No JVD, no adenopathy noted. LUNGS: Clear to auscultation. No adventitious sounds. HEART: S1 and S2. Normal rate and rhythm. No murmurs, rubs or gallops. ABDOMEN: Soft, nontender and nondistended. Bowel sounds are present. EXTREMITIES: No clubbing. No cyanosis. Peripheral pulses 2+ felt bilaterally. NEUROLOGIC: The patient is alert and oriented to person, place, month and year. Recall after 5 minutes is 2/3. Poor attention span. Slow thought process. Residual left-sided facial droop from prior CVAs. Motor exam: Moves all extremities equally. No pronator drift seen. Sensory exam: Light touch and pinprick slightly decreased up to the calves bilaterally, decreased vibration of the toes. DTRs are 2+ throughout and 1 at both knees and absent at the ankles. Coordination of [id number] intact. No dysmetria noted. ASSESSMENT AND PLAN: This is a 77-year-old woman with history of type 2 diabetes mellitus, hypertension, history of cerebrovascular accident, residual left facial droop who presented with syncopal episode after being in [facility]. Her syncope seems likely secondary to possible vasovagal event rather than a seizure. MRI of the brain and MRA of the head is unremarkable. At this time, recommend; 1. Orthostatic vital signs. 2. Aspirin 81, Plavix 75 and Lipitor 40 for stroke prevention. 3. Keep blood sugar between 140-180. 4. Keep systolic blood pressure of 130s-140s and diastolic 70s-80s and PT/OT evaluation clinically stable from my standpoint. Thank you for this consult. Baltazar Thomas MD
--- NOTE | 2017-08-22 17:41 | US ---
PROCEDURE: Bilateral carotid artery duplex ultrasound HISTORY: Carotid stenosis syncope PHYSICIAN(S): Jesus Adame MD. TECHNIQUE: Duplex sonography and color-flow Doppler were used to evaluate the carotid bifurcations and limited segments of the vertebral arteries bilaterally. FINDINGS: There is mild to moderate smooth diffuse heterogeneous plaque noted at the carotid bifurcations bilaterally. The peak systolic velocity in the proximal right internal carotid artery is 91 cm/sec. This corresponds to a 20 to 39% proximal right ICA stenosis. Normal systolic velocities are noted in the proximal right external carotid artery. There is antegrade flow in the right vertebral artery. The peak systolic velocity in the proximal left internal carotid artery is 111 cm/sec. This corresponds to a 40-59 percent proximal left ICA stenosis. Normal systolic velocities are noted in the proximal left external carotid artery. There is antegrade flow in the left vertebral artery. IMPRESSION: 1. 40-59 percent proximal left ICA stenosis. 2. 20-39 percent proximal right ICA stenosis. 3. Antegrade flow in both vertebral arteries.
--- NOTE | 2017-08-22 21:01 | CON ---
DATE: 08/22/2017 CARDIOLOGY CONSULTATION HISTORY: The patient is a 77-year-old woman with recurrent falls and syncope in the past. She was extensively worked up last month and in the past for similar symptoms where she was found to have unremarkable Holter monitor. No arrhythmias on telemetry monitoring. Echocardiogram that shows no LV outflow obstruction. She suffers from diabetes mellitus, hypertension and history of CVAs in the past. Currently, the patient is feeling well and wants to go home. SOCIAL HISTORY: She denies smoking. REVIEW OF SYSTEMS: She denies angina. No shortness of breath. No edema. No dizziness. No orthopnea. No PND. PHYSICAL EXAMINATION: VITAL SIGNS: Blood pressure is 158/72, heart rates in the 60s, normal sinus rhythm. NECK: Negative JVD. LUNGS: Without rales. HEART: Reveals S1, S2. EXTREMITIES: Without edema. LABORATORY DATA: EKG shows no new changes. Laboratories were reviewed and found to be unremarkable. IMPRESSION: 1. Recurrent syncope. 2. Hypertension. 3. Diabetes mellitus. 4. Hypercholesterolemia. 5. Cerebrovascular accidents in the past. PLAN: Given these findings, there is no further cardiac workup at this time. We will need to accept blood pressures between 150 and 160. Below this, the patient becomes markedly symptomatic. Jesus Castro MD
[2017-08-23] MEDS: Pantoprazole 40 mg EC Tab PO SCH (06:04)
[2017-08-23 06:21] LABS: BASO # 0.01 K/mm3 (0.0-2.0); BASO % 0.1 % (0.0-3.0); EOS # 0.1 (0.0-0.7); EOS % 0.8 % (1.5-5.0); GRAN # 5.57 (1.4-6.5); GRAN % 64.8 % (50.0-68.0); LYMPH # 2.6 (1.2-3.4); LYMPH % 30.3 % (22.0-35.0); MEAN CELL VOLUME 89.8 fl (80.0-105.0); MEAN CORPUSCULAR HEMOGLOBIN 29.1 pg (25.0-35.0); MEAN CORPUSCULAR HGB CONC 32.4 g/dl (31.0-37.0); MEAN PLATELET VOLUME 10.2 fl (7.0-11.0); MONO # 0.3 (0.1-0.6); RBC 3.44 10^6/uL (3.5-6.1); RED CELL DISTRIBUTION WIDTH 13.8 % (11.5-14.5); WHITE BLOOD COUNT 8.6 10^3/ul (4.5-11.0)
[2017-08-23] MEDS: Insulin Lispro 1 UNITS/0.01 ML SC SCH ×3 (08:44→17:17)
[2017-08-23] MEDS: Insulin Human NPH 1 UNITS/0.01 ML SC SCH ×2 (08:44→18:19)
--- NOTE | 2017-08-23 09:22 | CARD ---
APPROVED REPORT Date of service: 08/23/2017 EKG Measurement Heart [id number] CT [id number] <Conclusion> Normal sinus rhythm Poor R Progression V Leads. Non Specific ST_T Changes.
[2017-08-23] MEDS: Multivitamin Vitamin B Complex (Nephro-Vite) Tab PO SCH (09:23)
[2017-08-23] MEDS: ULORIC 40MG PO SCH (09:37)
[2017-08-23] MEDS: POLYETHYLENE GLYCOL 3350 17 GM/Dose PACKET PO SCH ×3 (09:38→18:25)
[2017-08-23 13:51] VITALS: O2SAT 100
--- NOTE | 2017-08-23 14:36 | PN ---
DATE: 08/23/2017 CARDIOLOGY FOLLOWUP SUBJECTIVE: The patient is awake and alert, moving around the room without dizziness. OBJECTIVE: VITAL SIGNS: Blood pressure is 140-160 systolic, heart rate is in the 70s. NECK: Negative JVD. LUNGS: Without rales. HEART: Reveal S1, S2. EXTREMITIES: Without edema. DATA: Hemoglobin is 10. Glucose is 247. IMPRESSION: 1. History of recurrent syncope. 2. No evidence for cardiac cause of her syncope. 3. Diabetes mellitus. 4. Hypercholesterolemia. 5. History of cerebrovascular accident in the past. Given these findings, there is no cardiac cause of her syncope. Given her tendency for falls and intolerance to pressures lower than 140. We will maintain her blood pressure between 140 and 160 systolic. Jesus Castro MD
--- NOTE | 2017-08-23 15:03 | CP.PCM.PN ---
Subjective - Date & Time of Evaluation Date of Evaluation: 08/23/17 Time of Evaluation: 10:00 - Subjective Subjective: Beronica Fernandes, PGY2, Progress Note for Dr Liao: Patient seen and examined at bedside. No acute events overnight. Patient states that she feels well and would like to go home. Denies further syncopal episodes , nausea, vomiting, fever, chills, abdominal pain, leg swelling, focal weakness. Objective - Vital Signs/Intake and Output Vital Signs (last 24 hours): Temp Pulse Resp BP Pulse Ox 98.4 F 74 18 173/80 H 100 08/23/17 11:37 08/23/17 13:45 08/23/17 11:37 08/23/17 13:32 08/23/17 08:09 - Medications Medications: Current Medications Acetaminophen (Tylenol 325mg Tab) 650 mg PO Q6 PRN PRN Reason: TEMP>=99.5F Acetaminophen (Tylenol 650 Mg Supp) 650 mg RC Q6H PRN PRN Reason: TEMP>=99.5F Aspirin (Ecotrin) 81 mg PO DAILY [facility] Last Admin: 08/23/17 09:24 Dose: 81 mg Atorvastatin Calcium (Lipitor) 40 mg PO DAILY [facility] Last Admin: 08/23/17 09:24 Dose: 40 mg Clopidogrel Bisulfate (Plavix) 75 mg PO DAILY [facility] Last Admin: 08/23/17 09:24 Dose: 75 mg Docusate Sodium (Colace) 100 mg PO TID [facility] Last Admin: 08/23/17 13:36 Dose: 100 mg Ezetimibe (Zetia) 10 mg PO DAILY [facility] Last Admin: 08/23/17 09:24 Dose: 10 mg Ergocalciferol (Drisdol 50,000 Intl Units Cap) 1 cap PO Q7D [facility] Last Admin: 08/21/17 18:31 Dose: 1 cap Folic Acid (Folic Acid) 1 mg PO DAILY [facility] Last Admin: 08/23/17 09:24 Dose: 1 mg Heparin Sodium (Porcine) (Heparin) 5,000 units SC Q8 [facility] PRN Reason: Protocol Last Admin: 08/23/17 13:36 Dose: 5,000 units Home Med (Home Med) 40 unit PO DAILY [facility] Last Admin: 08/23/17 09:37 Dose: Not Given Hydralazine HCl (Apresoline) 25 mg PO QID [facility] Last Admin: 08/23/17 13:32 Dose: 25 mg Iron Sucrose 200 mg/ Sodium (Chloride) 110 mls @ 110 mls/hr IVPB DAILY [facility] Stop: 08/24/17 10:59 Last Admin: 08/23/17 09:34 Dose: 110 mls/hr Insulin Human Lispro (Humalog) 0 units SC AC [facility] PRN Reason: Protocol Last Admin: 08/23/17 11:45 Dose: 5 units Insulin Human NPH (Humulin N) 10 units SC ACB [facility] Last Admin: 08/23/17 08:44 Dose: Not Given Insulin Human NPH (Humulin N) 10 units SC DAILY@1745 [facility] Last Admin: 08/22/17 17:39 Dose: 10 units Ondansetron HCl (Zofran Inj) 4 mg IVP Q4H PRN PRN Reason: Nausea/Vomiting Oxycodone/Acetaminophen (Percocet 5/325 Mg Tab) 1 tab PO Q6 PRN PRN Reason: Pain, moderate (4-7) Stop: 08/24/17 18:01 Last Admin: 08/21/17 18:27 Dose: 1 tab Pantoprazole Sodium (Protonix Ec Tab) 40 mg PO 0600 [facility] Last Admin: 08/23/17 06:04 Dose: 40 mg Polyethylene Glycol (Miralax) 17 gm PO TID [facility] Last Admin: 08/23/17 13:37 Dose: 17 gm Vitamin B Complex/Vit C/Folic Acid (Nephro-Francisco) 1 tab PO 0800 [facility] Last Admin: 08/23/17 09:23 Dose: 1 tab - Labs Labs: PT 11.3 SECONDS (9.4-12.5) 08/21/17 14:45 INR 0.99 (0.93-1.08) 08/21/17 14:45 APTT 27.9 Seconds (25.1-36.5) 08/21/17 14:45 - Additional Findings Additional findings: - Constitutional Appears: Non-toxic, No Acute Distress - Head Exam Head Exam: ATRAUMATIC, NORMOCEPHALIC - Eye Exam Eye Exam: EOMI, PERRL. absent: Conjunctival injection, Nystagmus, Scleral icterus Additional comments: + facial asymmetry, right sides eyelid ptosis and facial droop noted (from prior stroke) - ENT Exam ENT Exam: Mucous Membranes Moist - Neck Exam Neck Exam: Full ROM - Respiratory Exam Respiratory Exam: Clear to Ausculation Bilateral, NORMAL BREATHING PATTERN. absent: Accessory Muscle Use, Chest Wall Tenderness, Rales, Rhonchi, Stridor - Cardiovascular Exam Cardiovascular Exam: RRR, +S1, +S2. absent: Murmur - GI/Abdominal Exam GI & Abdominal Exam: Soft, Normal Bowel Sounds. absent: Distended, Guarding, Rigid, Tenderness, Mass, Organomegaly, Rebound - Extremities Exam Extremities Exam: Normal Inspection. absent: Calf Tenderness, Pedal Edema - Back Exam Back Exam: NORMAL INSPECTION - Neurological Exam Neurological Exam: Alert, Awake, Oriented x3 - Psychiatric Exam Psychiatric exam: Normal Affect, Normal Mood - Skin Skin Exam: Dry, Normal Color, Warm Assessment and Plan - Assessment and Plan (Free Text) Assessment: 77 year old female with PMH CVA with residual speech/facial asymmetry, HTN, DM, lacunar infarcts, presents s/p syncopal episode: Syncope: 2/2 vasovagal vs carotid artery stenosis, ruled out seizure, CVA, arrhythmia, valvular - EEG showed no seizure activity, as reported by Dr Thomas - Neuro on board. appreciate recs. States that its likely vasovagal. C/w ASA, plavix, lipitor. - CT head shows chronic lacunar infarct left side of terra - MRI and MRA brain negative. - UA neg for infection - Tele monitoring - EKG shows HR 75 NSR. Qtc 462 ms. - Echo 06/2017 shows EF 64.5% - trops neg x3 - Cardiology on board. appreciate recs. prior extensive cardiology workup done, negative. Recommends SBP 150-160 to prevent syncopal episodes. - Carotid artery US showed 40-59% proximal left ICA stenosis, 20-39% proximal right ICA stenosis. Ordered MRA neck, if negative, can be discharged home. Communicated with MRI department, who state that they have several MRI outpatient pending, and will take patient after. - Monitor CKD: - Cr 1.8 (baseline is 1.8) - avoid nephrotoxic agents Iron deficiency anemia: - Hgb stable - administered IV iron 200 mg x3 Hx of HTN: - home hydralazine - monitor Hx of HLD: - lipitor Hx of prior CVA: - ASA, plavix Hx of DM: - home insulin - ISS - monitor PPX: protonix, heparin sq Case seen and discussed with Dr liao. Beronica Fernandes, PGY2
[2017-08-23 17:25] VITALS: RESP 20; TEMP 97.9
[2017-08-23 18:30] VITALS: BP 167/87; PULSE 92
--- NOTE | 2017-08-24 07:40 | DS ---
FINAL PROGRESS NOTE AND DISCHARGE SUMMARY The patient was seen in room 268, bed 1. The patient was seen sitting up in the bed, requesting to go home. The patient does not appear to be in any distress. The patient denies any syncope, denies loss of consciousness, denies any chest pain, denies any shortness of breath, denies any falls. Overnight nurse's notes were reviewed. PHYSICAL EXAMINATION: VITAL SIGNS: T-max 98.6; pulse 73, 95, 65, telemetry shows sinus rhythm; blood pressure , 145/63, 164/74; respirations 18; O2 sat 97%. HEAD: Normocephalic, atraumatic. EENT: Shows positive facial asymmetry, flattening of the left nasolabial fold. Questionable carotid bruits, soft carotid bruit bilaterally. CHEST: Kyphosis. LUNGS: Show no rales, crackles, or wheezing. CARDIOVASCULAR: S1 and S2, regular rhythm. Questionable soft systolic murmur in the left sternal border, right second intercostal space, and left second intercostal space. ABDOMEN: Soft. Positive bowel sound. No hepatosplenomegaly noted. GENITALIA: Female. RECTAL: Deferred. EXTREMITIES: Show no pitting, no calf tenderness, no Homans' sign. NEUROLOGIC: The patient is alert, awake, and oriented x3. Cranial nerves II-XII limited. Positive weakness of the right side noted. Gait examination not tested. MUSCULOSKELETAL: Shows body mass index of 27. Positive weakness of the right upper and lower extremity noted which is 4+ to 5-/5. LABORATORY DATA: CBC from 08/23/2017: WBC 8.6, hemoglobin and hematocrit 10 and 31, platelet 309. Homocysteine is 14. B12 is . Vitamin D 25-hydroxy 51, hemoglobin A1c 7.7, fructosamine 322. Blood cultures, no growth. Carotid ultrasound results noted. FINAL IMPRESSION, PLAN, AND DISCHARGE DIAGNOSES: 1. Syncope, probable vasovagal syncope. 2. Hypertension. 3. History of bradycardia. 4. Iron-deficiency normocytic anemia. 5. Transient granulocytosis. 6. Uncontrolled insulin-requiring diabetes mellitus with hemoglobin A1c of 7.7 and fructosamine of 322. 7. Hyperhomocystinemia. 8. Proteinuria and bacteriuria. 9. A 40%-59% proximal left internal carotid artery stenosis. 10. A 20%-39% proximal right internal carotid artery stenosis. PLAN: At this time, the patient will be considered for discharge if the MRA of the carotid and EEG are negative as the patient is requesting and expressing her interest to be discharged home. The patient was seen by the physical therapist. Their recommendation was to continue PT. Discharge recommendation, home. Discharge plan, at this time, the patient may be discharged after MRA of the neck is done and negative and if EEG results are negative. The patient will resume all home meds as per ambulatory orders. Discharge followup with Dr. Powell within 1 week. No driving, no smoking. The patient's case referred to [facility]. The patient will be discharged home after above results are negative. DISCHARGE MEDICATIONS: Lipitor 40 mg daily, Renagel 1 capsule daily, Plavix 75 mg daily, Colace 100 mg three times a day, Drisdol 50,000 units weekly, Zetia 10 mg daily, Uloric 40 mg daily, ferrous gluconate 324 mg three times a day, folic acid 1 to 5 mg daily, hydralazine 25 mg four times a day, Percocet 5 per 325 every 6 hours p.r.n., Protonix 40 mg daily, MiraLax 17 g three times a day, Nephro-Francisco 1 tablet daily. In addition, the patient will be resuming her basal insulin at home. The patient will also resume aspirin and Plavix at home. The patient will resume vitamin D 50,000 units weekly. During this hospitalization, the patient was extensively explained about the details of her medical condition, diagnoses, test results, all were explained to the patient at length and all questions concerned answered. She acknowledged understood. Time spent in the entire discharge process and management more than 45 minutes. Dictated and electronically signed, not read. Randall Powell MD
--- NOTE | 2017-08-24 09:21 | MRI ---
Date of service: 08/23/2017 PROCEDURE: MR Angiography of the neck without contrast HISTORY: CAROTID STENOSIS COMPARISON: Carotid vertebral duplex examination from 08/22/2017. TECHNIQUE: 3D [id number] angiography of the neck was performed. Rotating maximum intensity projection images of the cervical carotid and vertebral arteries were generated. The origins of the common carotid arteries were not visualized, which is a limitation inherent to the non-contrast time of flight technique. FINDINGS: RIGHT CAROTID ARTERIES: Common Carotid Artery: Normal. Carotid Bifurcation: Normal. Internal Carotid Artery:Mild eccentric plaque in the proximal internal carotid arteries. No significant stenosis. . External Carotid Artery (proximal branches): Normal. LEFT CAROTID ARTERIES: Common Carotid Artery: Normal. Carotid Bifurcation: Normal. Internal Carotid Artery:Normal. External Carotid Artery (proximal branches): Normal. VERTEBRAL ARTERIES: Right Vertebral Artery: Normal. Left Vertebral Artery: Normal. OTHER FINDINGS: None. IMPRESSION: No evidence of hemodynamically significant stenosis in the internal carotid arteries. Patent codominant vertebral arteries. A preliminary report was provided by [employer].
[2017-08-27 09:57] LABS: GLYCOMARK(R) 5.3 mcg/mL (7.5-28.4)
== END 2017-08-23 19:32 | disposition home or self-care (01) ==
LOC: ED 14:24 → ERH 17:48 → 2RNO 20:44 → INTOOBSV 08-23 07:21 → OBSVTOIN 08-23 07:21
PROVIDERS: ADMIT Internal Medicine; ATTEND Internal Medicine
DX: R55 Syncope and collapse (principal); I13.10 Hypertensive heart and chronic kidney disease without heart failure, with stage 1 through stage 4 chronic kidney disease, or unspecified chronic kidney disease; D50.9 Iron deficiency anemia, unspecified; E11.65 Type 2 diabetes mellitus with hyperglycemia; D63.1 Anemia in chronic kidney disease; E11.22 Type 2 diabetes mellitus with diabetic chronic kidney disease; E11.43 Type 2 diabetes mellitus with diabetic autonomic (poly)neuropathy; E53.8 Deficiency of other specified B group vitamins; E55.9 Vitamin D deficiency, unspecified; E78.00 Pure hypercholesterolemia, unspecified; E78.5 Hyperlipidemia, unspecified; G89.4 Chronic pain syndrome; G93.89 Other specified disorders of brain; I25.10 Atherosclerotic heart disease of native coronary artery without angina pectoris; I69.354 Hemiplegia and hemiparesis following cerebral infarction affecting left non-dominant side; K31.84 Gastroparesis; I65.23 Occlusion and stenosis of bilateral carotid arteries; K57.30 Diverticulosis of large intestine without perforation or abscess without bleeding; K59.00 Constipation, unspecified; M16.0 Bilateral primary osteoarthritis of hip; M17.0 Bilateral primary osteoarthritis of knee; M19.019 Primary osteoarthritis, unspecified shoulder; M47.812 Spondylosis without myelopathy or radiculopathy, cervical region; N18.4 Chronic kidney disease, stage 4 (severe); N25.81 Secondary hyperparathyroidism of renal origin; Z79.4 Long term (current) use of insulin; Z86.010 Personal history of colon polyps; Z90.710 Acquired absence of both cervix and uterus; R80.9 Proteinuria, unspecified; R82.71 Bacteriuria
CPT/HCPCS: 36415; 70450; 70544; 70547; 70551; 71045; 80053; 80061; 81001; 82248; 82306; 82550; 82607; 82668; 82728; 82746; 82948; 82985; 83036; 83090; 83540; 83550; 83735; 84378; 84484; 85025; 85044; 85610; 85730; 87040; 92610; 93005; 93880; 95812; 96360; 96361; 97116; 97161; 99285; G0378; G8978; G8979; G8996; G8997; J1644; J1756; J7030

== ENCOUNTER 2018-03-24 10:12 | Outpatient (CLI) | payer OTHER | END 2018-03-24 10:13 | disposition home or self-care (01) | LOC: RAD 10:12 | DX: Z12.31 Encounter for screening mammogram for malignant neoplasm of breast (principal) ==